=== PATIENT | male | born 1975 | race Caucasian/White ===

== ENCOUNTER 2020-12-15 02:11 | Inpatient (IN) | payer SELFPAY ==
[2020-12-15] MEDS ORDERED: Multivitamins, Adult 10 ML, Thiamine HCl 100 MG, Folic Acid 1 MG in Dextrose 5 %-0.45 %... IV SCH (03:15)
[2020-12-15 03:29] LABS: CK (CPK) 1806 U/L (30-200); Phosphorus 3.7 mg/dL (2.3-4.7)
[2020-12-15 03:30] LABS: ALT (SGPT) 54 U/L (8-55); AST (SGOT) 150 U/L (5-34); Albumin 3.2 g/dL (3.5-5.0); Alkaline Phosphatase 152 U/L (40-110); Anion Gap 14 mmol/L (10-20); BUN (Urea Nitrogen) 12 mg/dL (8.9-20.6); Bilirubin, Total 6.3 mg/dL (0.2-1.2); Calc. Creatinine Clearance 0 mL/min (70-130); Calcium 8.8 mg/dL (7.8-10.44); Carbon Dioxide 26 mmol/L (22-29); Chloride 92 mmol/L (98-107); Globulin 4.5 g/dL (2.4-3.5); Glucose 114 mg/dL (70-105); Lipase 72 U/L (8-78); Magnesium 1.8 mg/dL (1.6-2.6); Potassium 3.9 mmol/L (3.5-5.1); Protein, Total 7.7 g/dL (6.0-8.3); Sodium 128 mmol/L (136-145)
[2020-12-15 03:31] LABS: #Eosinphils 0.1 thou/uL (0.0-0.7); #Lymphocytes 1.1 thou/uL (1.20-3.40); #Monocytes 1.2 thou/uL (0.11-0.59); #Neutrophils 6.7 thou/uL (1.40-6.50); %Basophils 0.4 % (0.0-1.0); %Eosinophils 0.8 % (0.0-10.0); %Lymphocytes 12.3 % (21.0-51.0); %Monocytes 13.6 % (0.0-10.0); Hemoglobin 14.9 g/dL (14.0-18.0); Lymphocytes 12 % (21-51); MDiff Complete? YES; Mean Corpuscular Hemoglobin 33.9 pg (27.0-31.0); Mean Platelet Volume 9.8 fL (7.4-10.4); Monocytes 5 % (0-10); Neutrophil 83 % (42-75); Platelet Count 48 thou/uL (130-400); Platelet Morphology Comment Appears Decreased; RBC Distribution Width 13.1 % (11.5-14.5); Red Blood Cell (RBC) Count 4.38 mill/uL (4.70-6.10); White Blood Cell (WBC) Count 9.1 thou/uL (4.8-10.8)
[2020-12-15] MEDS ORDERED: Lorazepam 2 MG/ML VIAL ONE ×2 (03:39→11:02)
[2020-12-15 04:03] LABS: Amphetamine Not Detected (NotDetected); Barbiturates Screen Not Detected (NotDetected); Benzodiazepine Screen Not Detected (NotDetected); Cocaine Metabolite Screen Not Detected (NotDetected); Medtox Control Line Valid? VALID (VALID); Medtox Reader # READER 4; Methadone Not Detected (NotDetected); Methamphetamine Not Detected (NotDetected); Opiate Screen Not Detected (NotDetected); Oxycodone Screen Not Detected (NotDetected); Phencyclidine (PCP) Not Detected (NotDetected); THC/Cannabinoid Screen Not Detected (NotDetected); Tricyclic Screen Not Detected (NotDetected)
[2020-12-15] MEDS ORDERED: Acetaminophen 325 MG TAB PO PRN (06:51)
[2020-12-15] MEDS ORDERED: Ondansetron PF 4 MG/2 ML Vial IVP PRN (06:51)
[2020-12-15 07:01] LABS: Anion Gap 13 mmol/L (10-20); BUN (Urea Nitrogen) 10 mg/dL (8.9-20.6); CK (CPK) 1316 U/L (30-200); Calc. Creatinine Clearance 0 mL/min (70-130); Calcium 8.4 mg/dL (7.8-10.44); Carbon Dioxide 24 mmol/L (22-29); Chloride 97 mmol/L (98-107); Glucose 116 mg/dL (70-105); Potassium 3.3 mmol/L (3.5-5.1); Sodium 131 mmol/L (136-145)
[2020-12-15] MEDS ORDERED: Potassium Chloride 20 MEQ TAB PO SCH (07:30)
[2020-12-15 07:45] LABS: INR-International Normal Ratio 1.5; PTT 37.5 sec (22.9-36.1); Prothrombin Time 18.1 sec (12.0-14.7)
[2020-12-15] MEDS: Famotidine 20 MG TAB PO SCH ×2 (10:20→21:28)
[2020-12-15] MEDS ORDERED: Potassium Chloride 20 MEQ TAB ONE (10:22)
[2020-12-15] MEDS ORDERED: Famotidine 20 MG TAB ONE (10:22)
[2020-12-15] MEDS ORDERED: chlordiazePOXIDE HCl 25 MG CAP ONE (11:02)
[2020-12-15] MEDS: Lorazepam 2 MG/ML VIAL SLOW IVP PRN ×4 (11:14→23:03)
[2020-12-15] MEDS ORDERED: chlordiazePOXIDE HCl 25 MG CAP PO SCH ×2 (12:00→14:00)
[2020-12-15 12:05] LABS: Bilirubin Negative (Negative); Blood, Urine Negative (Negative); Glucose, Urine (Dipstick) Negative (Negative); Ketone, Urine Negative (Negative); Leukocyte Negative (Negative); Nitrite Negative (Negative); Protein, Urine (Dipstick) Negative (Neg-Trace)
[2020-12-15 12:12] LABS: Clarity Clear (Clear); Specific Gravity, Urine 1.008 (1.005-1.030)
[2020-12-15 12:14] VITALS: BMI 21.0
[2020-12-15 12:19] LABS: Bacteria/HPF None Seen HPF (None Seen); RBC/HPF 0-3 HPF (0-3); Squamous Epithelial None Seen HPF (0-3); WBC/HPF 0-3 HPF (0-3)
[2020-12-15 12:22] LABS: Urine Culture Reflex No No
[2020-12-15] MEDS: Multivitamins, Adult 10 ML, Folic Acid 1 MG, Thiamine HCl 100 MG in Dextrose 5 %-0.45 %... IV SCH (12:45)
[2020-12-15 13:13] LABS: Anion Gap 11 mmol/L (10-20); BUN (Urea Nitrogen) 10 mg/dL (8.9-20.6); Calc. Creatinine Clearance 124 mL/min (70-130); Calcium 8.6 mg/dL (7.8-10.44); Carbon Dioxide 27 mmol/L (22-29); Chloride 98 mmol/L (98-107); Glucose 121 mg/dL (70-105); Potassium 3.9 mmol/L (3.5-5.1); Sodium 132 mmol/L (136-145)
[2020-12-15] MEDS ORDERED: Lorazepam 2 MG/ML VIAL SLOW IVP SCH (15:30)
[2020-12-15] MEDS ORDERED: Lorazepam 2 MG/ML VIAL SLOW IVP PRN (15:32)
[2020-12-15] MEDS ORDERED: Magnesium 2 GM/50 ML 2 GM in Premix Bag 1 BAG IVPB SCH (16:00)
[2020-12-15 17:17] LABS: HBCM Index 0.14 S/CO (0-0.79); HBSAg Index 0.18 S/CO (0-0.99); Hep A IgM AB Non-Reactive (NonReactive); Hep A IgM S/CO 0.46 S/CO (0-0.79); Hep B Surf Ag Non-Reactive S/CO (NonReactive); Hep C IgG Ab Non-Reactive (NonReactive); Hep C Index 0.14 S/CO (0-0.79); Hepatitis B Core IgM Abs Non-Reactive (NonReactive)
[2020-12-15 17:30] LABS: CK (CPK) 1769 U/L (30-200); Magnesium 1.7 mg/dL (1.6-2.6); Phosphorus 2.8 mg/dL (2.3-4.7)
[2020-12-15] MEDS: Sodium Chloride 0.9% 1,000 ML IV SCH (21:29)
[2020-12-15 21:34] LABS: Anion Gap 12 mmol/L (10-20); BUN (Urea Nitrogen) 8 mg/dL (8.9-20.6); Calc. Creatinine Clearance 143 mL/min (70-130); Calcium 7.9 mg/dL (7.8-10.44); Carbon Dioxide 23 mmol/L (22-29); Chloride 103 mmol/L (98-107); Glucose 112 mg/dL (70-105); Potassium 3.6 mmol/L (3.5-5.1); Sodium 134 mmol/L (136-145)
[2020-12-16] MEDS: Lorazepam 2 MG/ML VIAL SLOW IVP PRN ×3 (01:47→07:57)
[2020-12-16 03:20] LABS: Eosinophils 1 % (0-10); Hypochromia SLIGHT = 6-15 cells (100X) (0-5/hpf); Lymphocytes 2 % (21-51); MDiff Complete? YES; Mean Corpuscular HGB CONC 33.5 g/dL (32.0-36.0); Mean Corpuscular Hemoglobin 36.8 pg (27.0-31.0); Mean Platelet Volume 8.8 fL (7.4-10.4); Monocytes 21 % (0-10); Neutrophil 76 % (42-75); Platelet Count 36 thou/uL (130-400); Platelet Morphology Comment Appears Decreased; RBC Distribution Width 13.4 % (11.5-14.5); Red Blood Cell (RBC) Count 3.52 mill/uL (4.70-6.10); White Blood Cell (WBC) Count 6.4 thou/uL (4.8-10.8)
[2020-12-16 03:36] LABS: ALT (SGPT) 47 U/L (8-55); AST (SGOT) 122 U/L (5-34); Albumin 2.7 g/dL (3.5-5.0); Alkaline Phosphatase 106 U/L (40-110); Anion Gap 10 mmol/L (10-20); BUN (Urea Nitrogen) 8 mg/dL (8.9-20.6); Bilirubin, Direct 3.5 mg/dL (0.1-0.3); Bilirubin, Total 5.8 mg/dL (0.2-1.2); Calc. Creatinine Clearance 132 mL/min (70-130); Calcium 7.8 mg/dL (7.8-10.44); Carbon Dioxide 24 mmol/L (22-29); Chloride 104 mmol/L (98-107); Glucose 97 mg/dL (70-105); Magnesium 1.9 mg/dL (1.6-2.6); Potassium 3.2 mmol/L (3.5-5.1); Protein, Total 6.4 g/dL (6.0-8.3); Sodium 135 mmol/L (136-145)
[2020-12-16] MEDS: Sodium Chloride 0.9% 1,000 ML IV SCH ×2 (07:56→17:44)
[2020-12-16] MEDS: Famotidine 20 MG TAB PO SCH ×2 (07:56→21:15)
[2020-12-16] MEDS ORDERED: Potassium Chloride 20 MEQ TAB PO SCH ×2 (08:00→18:00)
[2020-12-16] MEDS: Multivitamins, Adult 10 ML, Folic Acid 1 MG, Thiamine HCl 100 MG in Dextrose 5 %-0.45 %... IV SCH (08:19)
[2020-12-16] MEDS ORDERED: Potassium Chloride 40 MEQ in Sodium Chloride 0.9% 250 ML 250 ML IVPB SCH (19:30)
[2020-12-17 03:31] LABS: #Lymphocytes 0.9 thou/uL (1.20-3.40); #Monocytes 0.9 thou/uL (0.11-0.59); #Neutrophils 4.9 thou/uL (1.40-6.50); %Basophils 0.6 % (0.0-1.0); %Eosinophils 0.7 % (0.0-10.0); %Lymphocytes 12.7 % (21.0-51.0); %Monocytes 13.3 % (0.0-10.0); %Neutrophils 72.6 % (42.0-75.0); Hemoglobin 13.2 g/dL (14.0-18.0); Mean Corpuscular HGB CONC 34.6 g/dL (32.0-36.0); Mean Platelet Volume 8.8 fL (7.4-10.4); Platelet Count 38 thou/uL (130-400); RBC Distribution Width 13.3 % (11.5-14.5); Red Blood Cell (RBC) Count 3.47 mill/uL (4.70-6.10); White Blood Cell (WBC) Count 6.7 thou/uL (4.8-10.8)
[2020-12-17 03:50] LABS: ALT (SGPT) 47 U/L (8-55); AST (SGOT) 100 U/L (5-34); Albumin 2.5 g/dL (3.5-5.0); Alkaline Phosphatase 101 U/L (40-110); Anion Gap 10 mmol/L (10-20); BUN (Urea Nitrogen) 8 mg/dL (8.9-20.6); Bilirubin, Total 6.7 mg/dL (0.2-1.2); CK (CPK) 397 U/L (30-200); Calc. Creatinine Clearance 147 mL/min (70-130); Calcium 7.7 mg/dL (7.8-10.44); Carbon Dioxide 22 mmol/L (22-29); Chloride 104 mmol/L (98-107); Globulin 3.7 g/dL (2.4-3.5); Glucose 110 mg/dL (70-105); Magnesium 1.7 mg/dL (1.6-2.6); Potassium 3.9 mmol/L (3.5-5.1); Protein, Total 6.2 g/dL (6.0-8.3); Sodium 132 mmol/L (136-145)
[2020-12-17] MEDS: Sodium Chloride 0.9% 1,000 ML IV SCH (06:37)
[2020-12-17] MEDS: Famotidine 20 MG TAB PO SCH ×2 (07:35→20:26)
[2020-12-17] MEDS ORDERED: Magnesium 2 GM/50 ML 2 GM in Premix Bag 1 BAG IVPB SCH (08:00)
[2020-12-17] MEDS: Multivitamins, Adult 10 ML, Folic Acid 1 MG, Thiamine HCl 100 MG in Dextrose 5 %-0.45 %... IV SCH (09:01)
[2020-12-18 07:25] LABS: Hemoglobin 14.1 g/dL (14.0-18.0); Mean Corpuscular HGB CONC 32.8 g/dL (32.0-36.0); Mean Corpuscular Hemoglobin 36.8 pg (27.0-31.0); Mean Platelet Volume 9.2 fL (7.4-10.4); Platelet Count 51 thou/uL (130-400); RBC Distribution Width 13.2 % (11.5-14.5); Red Blood Cell (RBC) Count 3.84 mill/uL (4.70-6.10); White Blood Cell (WBC) Count 6.6 thou/uL (4.8-10.8)
[2020-12-18 07:32] LABS: ALT (SGPT) 52 U/L (8-55); AST (SGOT) 94 U/L (5-34); Albumin 2.9 g/dL (3.5-5.0); Alkaline Phosphatase 135 U/L (40-110); Anion Gap 11 mmol/L (10-20); BUN (Urea Nitrogen) 8 mg/dL (8.9-20.6); Bilirubin, Total 5.9 mg/dL (0.2-1.2); Calc. Creatinine Clearance 125 mL/min (70-130); Calcium 8.5 mg/dL (7.8-10.44); Carbon Dioxide 24 mmol/L (22-29); Chloride 104 mmol/L (98-107); Globulin 4.3 g/dL (2.4-3.5); Glucose 106 mg/dL (70-105); Potassium 3.9 mmol/L (3.5-5.1); Protein, Total 7.2 g/dL (6.0-8.3); Sodium 135 mmol/L (136-145)
[2020-12-18 08:52] LABS: Band 2 % (5-11); Lymphocytes 21 % (21-51); MDiff Complete? YES; Monocytes 13 % (0-10); Neutrophil 62 % (42-75); Platelet Morphology Comment Appears Decreased; RBC Morphology Normal; Reactive Lymphocytes 2 % (0-10)
[2020-12-18] MEDS ORDERED: Propranolol 40 MG TAB PO SCH (09:00)
[2020-12-18] MEDS: Famotidine 20 MG TAB PO SCH (09:02)
[2020-12-18] MEDS: Multivitamins, Adult 10 ML, Folic Acid 1 MG, Thiamine HCl 100 MG in Dextrose 5 %-0.45 %... IV SCH (09:03)
[2020-12-18 10:24] VITALS: BP 142/81; TEMP 97.9
[2020-12-18 11:37] LABS: SARS-CoV-2 PCR by NAA Not Detected (NotDetected)
== END 2020-12-18 10:26 | disposition home or self-care (01) | DRG 896 ==
LOC: ERS 02:11 → ERHOLD 03:54 → 2NO 12:03 → IMCU/EMU 20:37 → T4-B 12-17 19:47
PROVIDERS: ADMIT Internal Medicine; ATTEND Internal Medicine
PROC: HZ2ZZZZ Detoxification Services for Substance Abuse Treatment (ICD-10-PCS; principal; 2020-12-15)
DX: F10.231 Alcohol dependence with withdrawal delirium (principal); G93.41 Metabolic encephalopathy; E87.1 Hypo-osmolality and hyponatremia; M62.82 Rhabdomyolysis; G93.49 Other encephalopathy; D68.9 Coagulation defect, unspecified; Z20.822 Contact with and (suspected) exposure to COVID-19; F10.280 Alcohol dependence with alcohol-induced anxiety disorder; F10.251 Alcohol dependence with alcohol-induced psychotic disorder with hallucinations; F17.210 Nicotine dependence, cigarettes, uncomplicated; R74.8 Abnormal levels of other serum enzymes; E80.6 Other disorders of bilirubin metabolism; D69.6 Thrombocytopenia, unspecified; E87.6 Hypokalemia; E86.0 Dehydration; K70.10 Alcoholic hepatitis without ascites; Z79.899 Other long term (current) drug therapy
CPT/HCPCS: 36415; 70450; 71045; 76705; 80048; 80053; 80074; 80076; 80306; 81001; 82140; 82550; 83690; 83735; 83930; 83935; 84100; 84300; 84443; 85025; 85610; 85730; 93005; 96365; 96366; 96375; J2060; J3411; J3475; J3480; J7042; J7050; U0003; U0005

== ENCOUNTER 2021-02-17 19:06 | Inpatient (IN) | payer BC, SELFPAY ==
[2021-02-17 19:41] LABS: #Basophils 0.1 thou/uL (0.0-0.2); #Monocytes 0.6 thou/uL (0.11-0.59); #Neutrophils 10.6 thou/uL (1.40-6.50); %Basophils 0.5 % (0.0-1.0); %Eosinophils 0.1 % (0.0-10.0); %Lymphocytes 7.9 % (21.0-51.0); %Monocytes 4.9 % (0.0-10.0); %Neutrophils 86.6 % (42.0-75.0); Hemoglobin 9.9 g/dL (14.0-18.0); Mean Corpuscular HGB CONC 33.7 g/dL (32.0-36.0); Mean Corpuscular Hemoglobin 36.7 pg (27.0-31.0); RBC Distribution Width 12.9 % (11.5-14.5); White Blood Cell (WBC) Count 12.3 thou/uL (4.8-10.8)
[2021-02-17 19:51] LABS: INR-International Normal Ratio 1.7; Prothrombin Time 20.2 sec (12.0-14.7)
[2021-02-17 19:52] LABS: PTT 38.8 sec (22.9-36.1)
[2021-02-17 19:58] LABS: MDiff Complete? YES; Macrocytosis SLIGHT = 6-15 cells (100X) (0-5/hpf); Mean Platelet Volume 8.8 fL (7.4-10.4); Platelet Count 79 thou/uL (130-400); Platelet Morphology Comment Appears Decreased
[2021-02-17 20:01] LABS: ALT (SGPT) 33 U/L (8-55); AST (SGOT) 82 U/L (5-34); Albumin 2.4 g/dL (3.5-5.0); Alkaline Phosphatase 101 U/L (40-110); Anion Gap 20 mmol/L (10-20); BUN (Urea Nitrogen) 18 mg/dL (8.9-20.6); Bilirubin, Total 4.7 mg/dL (0.2-1.2); Calc. Creatinine Clearance 0 mL/min (70-130); Calcium 8.1 mg/dL (7.8-10.44); Carbon Dioxide 17 mmol/L (22-29); Chloride 105 mmol/L (98-107); Globulin 3.3 g/dL (2.4-3.5); Glucose 159 mg/dL (70-105); Potassium 4.2 mmol/L (3.5-5.1); Protein, Total 5.7 g/dL (6.0-8.3); Sodium 138 mmol/L (136-145)
[2021-02-17] MEDS ORDERED: Metoclopramide HCl 10 MG/2 ML VIAL ONE (21:03)
[2021-02-17] MEDS ORDERED: Fentanyl 100 MCG/2 ML VIAL ONE (21:31)
[2021-02-17] MEDS ORDERED: Midazolam HCl 2 mg/2 ml Vial ONE (21:31)
[2021-02-17 22:06] LABS: SARS-CoV-2 NAA Rapid Test Not Detected (NotDetected)
[2021-02-17] MEDS ORDERED: Esmolol 100 MG/10 ML VIAL ONE (22:58)
[2021-02-17] MEDS ORDERED: Lidocaine 1% PF 5 ML VIAL ONE (22:58)
[2021-02-17] MEDS ORDERED: PHENYLEPHRINE-NS 100 MCG/ML 10 ML SYRINGE ONE (22:58)
[2021-02-17] MEDS ORDERED: PROPOFOL 200 MG/20 ML VIAL ONE (22:58)
[2021-02-17] MEDS ORDERED: Fentanyl CADD 100 ML ONE (23:43)
[2021-02-17] MEDS ORDERED: Propofol 1,000 MG/100 ML VIAL IV ONE (23:43)
[2021-02-17] MEDS: Fentanyl CADD 100 ML IV SCH (23:45)
[2021-02-18] MEDS ORDERED: Morphine 2 MG/ML VIAL SLOW IVP PRN ×2 (00:30→01:00)
[2021-02-18] MEDS ORDERED: Fentanyl BOLUS 250 ML IVPB PRN ×2 (00:30→01:00)
[2021-02-18] MEDS ORDERED: Propofol BOLUS 1,000 MG/100 ML VIAL IV PRN ×2 (00:30→01:00)
[2021-02-18] MEDS ORDERED: DISCONTINUE PREVIOUS NARCOTIC PAIN MEDICATIONS AND BENZODIAZEPINES FS SCH ×2 (00:30→01:00)
[2021-02-18 00:37] LABS: Hemoglobin 7.9 g/dL (14.0-18.0); Platelet Count 87 thou/uL (130-400)
[2021-02-18] MEDS: Sodium Bicarb 50 MEQ/50 ML Abboject 8.4% SYRINGE ONE ×2 (00:39→00:40)
[2021-02-18 00:40] LABS: Actual Bicarbonate (HCO3a) 15.7 mEq/L (22-28); Base Excess (BEa) -10.5 mEq/L (-2.0 to +3.0); CO2 Tension 35.7 mmHg (35.0-45.0); Calcium, Ionized (arterial) 1.02 mmol/L (1.12-1.30); Hemoglobin (Hb) 8.1 g/dL (14.0-18.0); Potassium - ABG Lab 6.06 mmol/L (3.70-5.30); Puncture Site LRA; pH, Arterial 7.26 (7.35-7.45)
[2021-02-18 00:41] LABS: ALV-art Gradient 157.575 mmHg (0-20)
[2021-02-18] MEDS ORDERED: Ondansetron PF 4 MG/2 ML Vial IVP PRN (00:51)
[2021-02-18] MEDS ORDERED: Acetaminophen 650 MG Suppository PR PRN (00:51)
[2021-02-18] MEDS ORDERED: Ondansetron ODT 4 MG TAB PO PRN (00:51)
[2021-02-18] MEDS ORDERED: Lorazepam 2 MG/ML VIAL SLOW IVP PRN (01:00)
[2021-02-18] MEDS ORDERED: Fentanyl CADD 100 ML IV SCH (01:00)
[2021-02-18] MEDS ORDERED: Ventilator Sedation Protocol 1 EACH FS SCH (01:00)
[2021-02-18] MEDS ORDERED: Propofol 1,000 MG/100 ML VIAL IV PRN (01:00)
[2021-02-18] MEDS: cefTRIAXone\\ROCEPHIN 2 GM in Sodium Chloride 0.9% 100 ML IVPB SCH ×2 (01:18→22:10)
[2021-02-18] MEDS ORDERED: Diazepam 5 MG TAB PO PRN (03:51)
[2021-02-18 03:59] LABS: #Basophils 0.1 thou/uL (0.0-0.2); #Lymphocytes 1.2 thou/uL (1.20-3.40); #Monocytes 1.9 thou/uL (0.11-0.59); #Neutrophils 14.2 thou/uL (1.40-6.50); %Basophils 0.4 % (0.0-1.0); %Eosinophils 0.1 % (0.0-10.0); %Monocytes 10.9 % (0.0-10.0); %Neutrophils 81.7 % (42.0-75.0); Hemoglobin 8.9 g/dL (14.0-18.0); Mean Corpuscular HGB CONC 33.9 g/dL (32.0-36.0); Mean Corpuscular Hemoglobin 36.1 pg (27.0-31.0); Platelet Count 77 thou/uL (130-400); RBC Distribution Width 13.5 % (11.5-14.5); Red Blood Cell (RBC) Count 2.48 mill/uL (4.70-6.10); White Blood Cell (WBC) Count 17.3 thou/uL (4.8-10.8)
[2021-02-18] MEDS: Lorazepam 2 MG/ML VIAL SLOW IVP PRN ×7 (04:00→22:16)
[2021-02-18] MEDS ORDERED: Diazepam 5 MG TAB PO SCH (04:00)
[2021-02-18 04:12] LABS: Lactic Acid 9.4 mmol/L (0.5-2.2)
[2021-02-18 04:13] LABS: Anion Gap 19 mmol/L (10-20); BUN (Urea Nitrogen) 23 mg/dL (8.9-20.6); Calc. Creatinine Clearance 112 mL/min (70-130); Calcium 7.1 mg/dL (7.8-10.44); Carbon Dioxide 18 mmol/L (22-29); Chloride 110 mmol/L (98-107); Glucose 138 mg/dL (70-105); Potassium 6.6 mmol/L (3.5-5.1); Sodium 140 mmol/L (136-145)
[2021-02-18] MEDS ORDERED: Thiamine HCl 200 MG/2 ML VIAL IM SCH (04:15)
[2021-02-18] MEDS ORDERED: Dextrose 50% Abboject 50 ML SYRINGE ONE (04:18)
[2021-02-18] MEDS ORDERED: Insulin Regular 300 UNITS/3 ML VIAL ONE (04:18)
[2021-02-18] MEDS ORDERED: Dextrose 50% Abboject 50 ML SYRINGE SLOW IVP PRN (04:21)
[2021-02-18] MEDS ORDERED: Sodium Chloride 0.9% 1,000 ML IV SCH ×3 (04:30→08:15)
[2021-02-18] MEDS ORDERED: Insulin Regular 300 UNITS/3 ML VIAL IVP SCH ×3 (04:30→14:00)
[2021-02-18] MEDS ORDERED: Calcium Gluc 4.6 MEQ/10 ML (100 MG/ML) SLOW IVP SCH (04:30)
[2021-02-18] MEDS ORDERED: Dextrose 50% Abboject 50 ML SYRINGE SLOW IVP SCH ×2 (04:45→14:00)
[2021-02-18 04:49] LABS: Phosphorus 4.3 mg/dL (2.3-4.7)
[2021-02-18 05:46] LABS: Amphetamine Not Detected (NotDetected); Barbiturates Screen Not Detected (NotDetected); Benzodiazepine Screen Not Detected (NotDetected); Cocaine Metabolite Screen Not Detected (NotDetected); Methadone Not Detected (NotDetected); Methamphetamine Not Detected (NotDetected); Opiate Screen Not Detected (NotDetected); Oxycodone Screen Not Detected (NotDetected); Phencyclidine (PCP) Not Detected (NotDetected); THC/Cannabinoid Screen Not Detected (NotDetected); Tricyclic Screen Not Detected (NotDetected)
[2021-02-18] MEDS ORDERED: Sodium Bicarbonate 150 MEQ in Dextrose 5% in Water 1,000 ML IV SCH (06:30)
[2021-02-18 06:38] LABS: ALT (SGPT) 133 U/L (8-55); AST (SGOT) 352 U/L (5-34); Albumin 1.6 g/dL (3.5-5.0); Alkaline Phosphatase 71 U/L (40-110); Anion Gap 15 mmol/L (10-20); BUN (Urea Nitrogen) 25 mg/dL (8.9-20.6); Bilirubin, Direct 2.8 mg/dL (0.1-0.3); Bilirubin, Total 5.2 mg/dL (0.2-1.2); Calc. Creatinine Clearance 92 mL/min (70-130); Calcium 6.8 mg/dL (7.8-10.44); Carbon Dioxide 19 mmol/L (22-29); Chloride 113 mmol/L (98-107); Globulin 2.4 g/dL (2.4-3.5); Glucose 139 mg/dL (70-105); Magnesium 1.4 mg/dL (1.6-2.6); Potassium 4.8 mmol/L (3.5-5.1); Sodium 142 mmol/L (136-145)
[2021-02-18] MEDS: Pantoprazole 80 MG, Admixture Fee 1 EACH in Sodium Chloride 0.9% 100 ML IVPB SCH ×2 (06:38→15:57)
[2021-02-18] MEDS: Propofol 1,000 MG/100 ML VIAL IV PRN ×2 (06:39→11:11)
[2021-02-18 06:51] LABS: Syphilis Antibody Nonreactive (Nonreactive); Syphilis Antibody Index 0.04 S/CO (<1.00 Non-Reactive)
[2021-02-18] MEDS ORDERED: Magnesium 2 GM/50 ML 2 GM in Premix Bag 1 BAG IVPB SCH (08:45)
[2021-02-18 08:47] LABS: Hemoglobin 8.4 g/dL (14.0-18.0)
[2021-02-18 08:56] LABS: Lactic Acid 5.2 mmol/L (0.5-2.2)
[2021-02-18] MEDS ORDERED: Multivitamin W/ Minerals 1 TAB PO SCH (09:00)
[2021-02-18] MEDS ORDERED: Folic Acid 1 MG TAB PO SCH (09:00)
[2021-02-18] MEDS ORDERED: Albumin 25% 25 GM/100 ML BOT IVPB ONE (09:41)
[2021-02-18] MEDS: Multivitamins, Adult 10 ML, Folic Acid 1 MG, Thiamine HCl 100 MG in Dextrose 5 %-0.45 %... IV SCH (10:05)
[2021-02-18] MEDS: Phytonadione 10 MG/ML AMP SC SCH (10:44)
[2021-02-18] MEDS: Clindamycin/D5W 600 MG in Premix Bag 1 BAG IVPB SCH ×3 (12:10→23:31)
[2021-02-18] MEDS ORDERED: Fentanyl CADD 100 ML ONE (12:29)
[2021-02-18 12:42] LABS: Hemoglobin 6.8 g/dL (14.0-18.0)
[2021-02-18 13:11] LABS: Lactic Acid 4.2 mmol/L (0.5-2.2)
[2021-02-18 13:28] LABS: Anion Gap 16 mmol/L (10-20); BUN (Urea Nitrogen) 30 mg/dL (8.9-20.6); BUN/Creatinine Ratio 17.54; Calc. Creatinine Clearance 64 mL/min (70-130); Calcium 7.1 mg/dL (7.8-10.44); Carbon Dioxide 20 mmol/L (22-29); Chloride 109 mmol/L (98-107); Glucose 189 mg/dL (70-105); Phosphorus 3.9 mg/dL (2.3-4.7); Sodium 139 mmol/L (136-145)
[2021-02-18] MEDS ORDERED: Furosemide 40 MG/4 ML VIAL SLOW IVP SCH (14:00)
[2021-02-18] MEDS ORDERED: Lactated Ringer's 1,000 ML IV SCH (14:45)
[2021-02-18] MEDS: Octreotide Acetate 1,250 MCG in Sodium Chloride 0.9% 250 ML 250 ML IVPB SCH (15:57)
[2021-02-18 17:05] LABS: Hemoglobin 8.4 g/dL (14.0-18.0)
[2021-02-18 17:18] LABS: Lactic Acid 3.8 mmol/L (0.5-2.2)
[2021-02-18 20:16] LABS: Hemoglobin 7.9 g/dL (14.0-18.0)
[2021-02-18 20:28] LABS: Potassium 4.4 mmol/L (3.5-5.1)
[2021-02-18] MEDS ORDERED: Multivitamins, Adult 10 ML, Folic Acid 1 MG, Thiamine HCl 100 MG in Dextrose 5 %-0.45 %... IV SCH (23:30)
[2021-02-18] MEDS ORDERED: Sodium Chloride 0.9% 500 ML IV SCH (23:30)
[2021-02-19 00:07] LABS: Hemoglobin 7.4 g/dL (14.0-18.0); Platelet Count 34 thou/uL (130-400)
[2021-02-19] MEDS: Pantoprazole 80 MG, Admixture Fee 1 EACH in Sodium Chloride 0.9% 100 ML IVPB SCH ×3 (00:10→22:21)
[2021-02-19] MEDS ORDERED: Norepinephrine 8 MG/0.9% NS 250 ML IVPB PRN (00:36)
[2021-02-19 03:37] LABS: #Neutrophils 7.4 thou/uL (1.40-6.50); %Basophils 0.2 % (0.0-1.0); %Eosinophils 0.1 % (0.0-10.0); %Lymphocytes 10.6 % (21.0-51.0); %Monocytes 10.9 % (0.0-10.0); %Neutrophils 78.3 % (42.0-75.0); Hemoglobin 8.1 g/dL (14.0-18.0); Mean Corpuscular HGB CONC 34.9 g/dL (32.0-36.0); Mean Corpuscular Hemoglobin 34.4 pg (27.0-31.0); Mean Corpuscular Volume 98.7 fL (78.0-98.0); Mean Platelet Volume 9.8 fL (7.4-10.4); Platelet Count 33 thou/uL (130-400); RBC Distribution Width 18.5 % (11.5-14.5); Red Blood Cell (RBC) Count 2.34 mill/uL (4.70-6.10); White Blood Cell (WBC) Count 9.4 thou/uL (4.8-10.8)
[2021-02-19 03:48] LABS: Lactic Acid 2.5 mmol/L (0.5-2.2)
[2021-02-19 03:57] LABS: ALT (SGPT) 669 U/L (8-55); AST (SGOT) 2326 U/L (5-34); Albumin 2.7 g/dL (3.5-5.0); Alkaline Phosphatase 69 U/L (40-110); Anion Gap 11 mmol/L (10-20); BUN (Urea Nitrogen) 44 mg/dL (8.9-20.6); Bilirubin, Total 9.4 mg/dL (0.2-1.2); Calc. Creatinine Clearance 55 mL/min (70-130); Calcium 7.4 mg/dL (7.8-10.44); Carbon Dioxide 24 mmol/L (22-29); Chloride 108 mmol/L (98-107); Globulin 1.9 g/dL (2.4-3.5); Glucose 104 mg/dL (70-105); Magnesium 1.9 mg/dL (1.6-2.6); Phosphorus 3.7 mg/dL (2.3-4.7); Potassium 4.5 mmol/L (3.5-5.1); Protein, Total 4.6 g/dL (6.0-8.3); Sodium 138 mmol/L (136-145)
[2021-02-19] MEDS ORDERED: Diazepam 5 MG TAB PO PRN (04:00)
[2021-02-19] MEDS: Lorazepam 2 MG/ML VIAL SLOW IVP PRN ×3 (06:17→21:35)
[2021-02-19] MEDS: Clindamycin/D5W 600 MG in Premix Bag 1 BAG IVPB SCH ×4 (06:25→23:15)
[2021-02-19 06:45] LABS: Hemoglobin 8.6 g/dL (14.0-18.0)
[2021-02-19 07:35] LABS: Bacteria/HPF None Seen HPF (None Seen); Bilirubin 1+ (Negative); Blood, Urine 1+ (Negative); Clarity Clear (Clear); Glucose, Urine (Dipstick) Normal (Negative); Ketone, Urine Negative (Negative); Leukocyte Negative Leu/uL (Negative); Nitrite Negative (Negative); Protein, Urine (Dipstick) 20 mg/dL (Neg-Trace); Specific Gravity, Urine 1.024 (1.002-1.036); Squamous Epithelial 0-3 HPF (0-3); Urobilinogen Normal mg/dL (Less than 2); pH, Urine 5.5 (5.0-9.0)
[2021-02-19] MEDS ORDERED: Fentanyl CADD 100 ML ONE (07:35)
[2021-02-19] MEDS: Fentanyl CADD 100 ML IV SCH (07:44)
[2021-02-19 07:57] LABS: Creatinine, Urine 141.28 mg/dL (63-166)
[2021-02-19] MEDS ORDERED: Calcium Chloride 13.6 MEQ in Sodium Chloride 0.9% 100 ML IVPB SCH (08:15)
[2021-02-19 08:35] LABS: Urine Culture Reflex Yes Yes
[2021-02-19] MEDS ORDERED: Magnesium Oxide 400 MG TAB PO SCH (09:00)
[2021-02-19] MEDS ORDERED: Lidocaine 1% (PF) 30 ML VIAL FS SCH (09:00)
[2021-02-19] MEDS ORDERED: Thiamine 100 MG TAB PO SCH (09:00)
[2021-02-19] MEDS: Dextrose 5%-Lactated Ringers 1,000 ML IV SCH ×2 (09:13→16:51)
[2021-02-19] MEDS: Phytonadione 10 MG/ML AMP SC SCH (09:14)
[2021-02-19 09:20] LABS: Hemoglobin 8.6 g/dL (14.0-18.0)
[2021-02-19] MEDS: Multivitamins, Adult 10 ML, Folic Acid 1 MG, Thiamine HCl 100 MG in Dextrose 5 %-0.45 %... IV SCH (10:00)
[2021-02-19] MEDS: Propofol 1,000 MG/100 ML VIAL IV PRN (11:10)
[2021-02-19 11:51] LABS: Hemoglobin 8.3 g/dL (14.0-18.0)
[2021-02-19 12:45] LABS: Body Fluid Source Bronchial Washings; Clarity Cloudy/Turbid (Clear)
[2021-02-19 12:46] LABS: BF Color Yellow; BF WBC/Nonhematics Ct.-Manual 57800 /cu.mm
[2021-02-19 12:47] LABS: BF RBC Count - Manual 13800 /cu.mm
[2021-02-19 12:50] LABS: BF Segmented Neutrophils 89 %; Cell Count Non Hematic 11 %
[2021-02-19] MEDS: Midodrine HCl 5 MG TAB PER TUBE SCH ×2 (16:42→21:01)
[2021-02-19] MEDS: cefTRIAXone\\ROCEPHIN 2 GM in Sodium Chloride 0.9% 100 ML IVPB SCH (21:02)
[2021-02-19] MEDS: Octreotide Acetate 1,250 MCG in Sodium Chloride 0.9% 250 ML 250 ML IVPB SCH (22:21)
[2021-02-20 04:58] LABS: INR-International Normal Ratio 2.9; Prothrombin Time 30.8 sec (12.0-14.7)
[2021-02-20] MEDS: Clindamycin/D5W 600 MG in Premix Bag 1 BAG IVPB SCH ×3 (05:03→17:07)
[2021-02-20] MEDS: Dextrose 5%-Lactated Ringers 1,000 ML IV SCH ×2 (05:03→14:32)
[2021-02-20 07:10] LABS: ALT (SGPT) 715 U/L (8-55); AST (SGOT) 1722 U/L (5-34); Albumin 2.8 g/dL (3.5-5.0); Alkaline Phosphatase 88 U/L (40-110); Anion Gap 7 mmol/L (10-20); BUN (Urea Nitrogen) 43 mg/dL (8.9-20.6); Bilirubin, Total 11.4 mg/dL (0.2-1.2); Calc. Creatinine Clearance 80 mL/min (70-130); Calcium 8.1 mg/dL (7.8-10.44); Carbon Dioxide 27 mmol/L (22-29); Chloride 110 mmol/L (98-107); Globulin 2.5 g/dL (2.4-3.5); Glucose 142 mg/dL (70-105); Potassium 4.3 mmol/L (3.5-5.1); Protein, Total 5.3 g/dL (6.0-8.3); Sodium 140 mmol/L (136-145)
[2021-02-20 09:42] LABS: Lactic Acid 1.4 mmol/L (0.5-2.2)
[2021-02-20] MEDS: Phytonadione 10 MG/ML AMP SC SCH (09:54)
[2021-02-20] MEDS: Midodrine HCl 5 MG TAB PER TUBE SCH ×3 (09:54→20:08)
[2021-02-20] MEDS: Multivitamins, Adult 10 ML, Folic Acid 1 MG, Thiamine HCl 100 MG in Dextrose 5 %-0.45 %... IV SCH (10:24)
[2021-02-20] MEDS: Pantoprazole 80 MG, Admixture Fee 1 EACH in Sodium Chloride 0.9% 100 ML IVPB SCH ×2 (12:26→23:25)
[2021-02-20] MEDS ORDERED: Diazepam 5 MG TAB PO PRN (21:04)
[2021-02-20] MEDS: cefTRIAXone\\ROCEPHIN 2 GM in Sodium Chloride 0.9% 100 ML IVPB SCH (21:06)
[2021-02-20] MEDS ORDERED: Diazepam 5 MG TAB PO SCH (21:15)
[2021-02-20] MEDS ORDERED: Thiamine HCl 200 MG/2 ML VIAL IM SCH (21:30)
[2021-02-21] MEDS: Clindamycin/D5W 600 MG in Premix Bag 1 BAG IVPB SCH ×4 (00:18→17:18)
[2021-02-21] MEDS: Dextrose 5%-Lactated Ringers 1,000 ML IV SCH ×2 (00:26→17:19)
[2021-02-21 03:53] LABS: ALT (SGPT) 694 U/L (8-55); AST (SGOT) 1437 U/L (5-34); Albumin 2.5 g/dL (3.5-5.0); Alkaline Phosphatase 89 U/L (40-110); Anion Gap 6 mmol/L (10-20); BUN (Urea Nitrogen) 35 mg/dL (8.9-20.6); Bilirubin, Total 12.1 mg/dL (0.2-1.2); Calc. Creatinine Clearance 120 mL/min (70-130); Calcium 7.8 mg/dL (7.8-10.44); Carbon Dioxide 31 mmol/L (22-29); Chloride 109 mmol/L (98-107); Globulin 2.5 g/dL (2.4-3.5); Glucose 158 mg/dL (70-105); Potassium 4.1 mmol/L (3.5-5.1); Sodium 142 mmol/L (136-145)
[2021-02-21] MEDS ORDERED: Albumin 25% 25 GM/100 ML BOT IVPB SCH (06:15)
[2021-02-21] MEDS: Multivitamin W/ Minerals 1 TAB PO SCH (12:35)
[2021-02-21] MEDS: Midodrine HCl 5 MG TAB PER TUBE SCH ×3 (12:35→22:03)
[2021-02-21] MEDS: Magnesium Oxide 400 MG TAB PO SCH (12:35)
[2021-02-21] MEDS: Thiamine 100 MG TAB PO SCH (12:35)
[2021-02-21] MEDS: Folic Acid 1 MG TAB PO SCH (12:35)
[2021-02-21] MEDS: Octreotide Acetate 1,250 MCG in Sodium Chloride 0.9% 250 ML 250 ML IVPB SCH (17:20)
[2021-02-21] MEDS: Pantoprazole 40 MG VIAL IVP SCH (22:03)
[2021-02-21] MEDS: cefTRIAXone\\ROCEPHIN 2 GM in Sodium Chloride 0.9% 100 ML IVPB SCH (22:03)
[2021-02-22] MEDS: Clindamycin/D5W 600 MG in Premix Bag 1 BAG IVPB SCH ×5 (00:39→23:42)
[2021-02-22] MEDS ORDERED: Clindamycin/D5W 600 mg/50 ml Premix Bag ONE (00:41)
[2021-02-22] MEDS: Diazepam 5 MG TAB PO PRN ×2 (00:58→23:42)
[2021-02-22 04:20] LABS: ALT (SGPT) 709 U/L (8-55); AST (SGOT) 1219 U/L (5-34); Albumin 2.8 g/dL (3.5-5.0); Alkaline Phosphatase 96 U/L (40-110); Anion Gap 11 mmol/L (10-20); BUN (Urea Nitrogen) 35 mg/dL (8.9-20.6); Bilirubin, Total 13.9 mg/dL (0.2-1.2); Calc. Creatinine Clearance 125 mL/min (70-130); Calcium 8.2 mg/dL (7.8-10.44); Carbon Dioxide 26 mmol/L (22-29); Chloride 110 mmol/L (98-107); Globulin 2.7 g/dL (2.4-3.5); Glucose 139 mg/dL (70-105); Potassium 4.1 mmol/L (3.5-5.1); Protein, Total 5.5 g/dL (6.0-8.3); Sodium 143 mmol/L (136-145)
[2021-02-22 04:43] LABS: Band 10 % (5-11); Eosinophils 1 % (0-10); Hemoglobin 10.8 g/dL (14.0-18.0); Lymphocytes 7 % (21-51); MDiff Complete? YES; Macrocytosis MODERATE=16-30 cells (100X) (0-5/hpf); Mean Corpuscular Hemoglobin 34.2 pg (27.0-31.0); Mean Platelet Volume 9.9 fL (7.4-10.4); Monocytes 14 % (0-10); Neutrophil 68 % (42-75); Platelet Count 47 thou/uL (130-400); Platelet Morphology Comment Appears Decreased; RBC Distribution Width 19.6 % (11.5-14.5); Red Blood Cell (RBC) Count 3.17 mill/uL (4.70-6.10); White Blood Cell (WBC) Count 7.8 thou/uL (4.8-10.8)
[2021-02-22] MEDS: Dextrose 5%-Lactated Ringers 1,000 ML IV SCH (06:51)
[2021-02-22] MEDS: Folic Acid 1 MG TAB PO SCH (08:00)
[2021-02-22] MEDS: Magnesium Oxide 400 MG TAB PO SCH (08:00)
[2021-02-22] MEDS: Midodrine HCl 5 MG TAB PER TUBE SCH ×3 (08:00→21:43)
[2021-02-22] MEDS: Thiamine 100 MG TAB PO SCH (08:01)
[2021-02-22] MEDS: Multivitamin W/ Minerals 1 TAB PO SCH (08:01)
[2021-02-22 09:43] LABS: Magnesium 2.2 mg/dL (1.6-2.6)
[2021-02-22] MEDS: Pantoprazole 40 MG VIAL IVP SCH ×2 (11:36→21:42)
[2021-02-22] MEDS: cefTRIAXone\\ROCEPHIN 2 GM in Sodium Chloride 0.9% 100 ML IVPB SCH (21:42)
[2021-02-23] MEDS: Dextrose 5%-Lactated Ringers 1,000 ML IV SCH ×2 (03:31→21:59)
[2021-02-23 04:22] LABS: INR-International Normal Ratio 2.5; Prothrombin Time 27.4 sec (12.0-14.7)
[2021-02-23 04:32] LABS: ALT (SGPT) 568 U/L (8-55); AST (SGOT) 778 U/L (5-34); Albumin 2.6 g/dL (3.5-5.0); Alkaline Phosphatase 92 U/L (40-110); Anion Gap 10 mmol/L (10-20); BUN (Urea Nitrogen) 35 mg/dL (8.9-20.6); Bilirubin, Total 14.7 mg/dL (0.2-1.2); Calc. Creatinine Clearance 114 mL/min (70-130); Calcium 7.8 mg/dL (7.8-10.44); Carbon Dioxide 29 mmol/L (22-29); Chloride 106 mmol/L (98-107); Globulin 2.4 g/dL (2.4-3.5); Glucose 137 mg/dL (70-105); Sodium 141 mmol/L (136-145)
[2021-02-23 04:38] LABS: Band 2 % (5-11); Eosinophils 1 % (0-10); Hemoglobin 10.2 g/dL (14.0-18.0); Hypochromia SLIGHT = 6-15 cells (100X) (0-5/hpf); Lymphocytes 8 % (21-51); MDiff Complete? YES; Macrocytosis SLIGHT = 6-15 cells (100X) (0-5/hpf); Mean Corpuscular HGB CONC 33.1 g/dL (32.0-36.0); Mean Corpuscular Hemoglobin 34.4 pg (27.0-31.0); Mean Platelet Volume 9.6 fL (7.4-10.4); Monocytes 22 % (0-10); Neutrophil 67 % (42-75); Platelet Count 52 thou/uL (130-400); Platelet Morphology Comment Appears Decreased; RBC Distribution Width 19.5 % (11.5-14.5); Red Blood Cell (RBC) Count 2.96 mill/uL (4.70-6.10); White Blood Cell (WBC) Count 7.4 thou/uL (4.8-10.8)
[2021-02-23] MEDS: Clindamycin/D5W 600 MG in Premix Bag 1 BAG IVPB SCH (05:30)
[2021-02-23] MEDS: Octreotide Acetate 1,250 MCG in Sodium Chloride 0.9% 250 ML 250 ML IVPB SCH (09:34)
[2021-02-23] MEDS: Rifaximin 550 MG TAB PO SCH ×2 (09:38→21:55)
[2021-02-23] MEDS: Multivitamin W/ Minerals 1 TAB PO SCH (09:38)
[2021-02-23] MEDS: Magnesium Oxide 400 MG TAB PO SCH (09:38)
[2021-02-23] MEDS: Folic Acid 1 MG TAB PO SCH (09:39)
[2021-02-23] MEDS: chlordiazePOXIDE HCl 25 MG CAP PO SCH ×3 (09:39→21:55)
[2021-02-23] MEDS: Midodrine HCl 5 MG TAB PER TUBE SCH ×3 (09:40→21:55)
[2021-02-23] MEDS: Pantoprazole 40 MG VIAL IVP SCH ×2 (09:41→21:55)
[2021-02-23] MEDS: Thiamine 100 MG TAB PO SCH (09:41)
[2021-02-23] MEDS: methylPREDNISolone Sod Succ 40 MG VIAL IVP SCH (09:41)
[2021-02-23] MEDS: Phytonadione 10 MG/ML AMP SC SCH (09:43)
[2021-02-23] MEDS: Lorazepam 2 MG/ML VIAL SLOW IVP PRN ×2 (12:14→22:05)
[2021-02-23] MEDS: cefTRIAXone\\ROCEPHIN 2 GM in Sodium Chloride 0.9% 100 ML IVPB SCH (21:59)
[2021-02-24 04:28] LABS: ALT (SGPT) 489 U/L (8-55); AST (SGOT) 534 U/L (5-34); Albumin 2.5 g/dL (3.5-5.0); Alkaline Phosphatase 104 U/L (40-110); Anion Gap 13 mmol/L (10-20); BUN (Urea Nitrogen) 34 mg/dL (8.9-20.6); Bilirubin, Total 17.6 mg/dL (0.2-1.2); Calc. Creatinine Clearance 120 mL/min (70-130); Carbon Dioxide 24 mmol/L (22-29); Chloride 104 mmol/L (98-107); Globulin 2.9 g/dL (2.4-3.5); Glucose 139 mg/dL (70-105); Potassium 4.4 mmol/L (3.5-5.1); Protein, Total 5.4 g/dL (6.0-8.3); Sodium 137 mmol/L (136-145)
[2021-02-24 04:57] LABS: Band 12 % (5-11); Hemoglobin 11.3 g/dL (14.0-18.0); Lymphocytes 6 % (21-51); MDiff Complete? YES; Macrocytosis MODERATE=16-30 cells (100X) (0-5/hpf); Mean Corpuscular HGB CONC 32.8 g/dL (32.0-36.0); Mean Corpuscular Hemoglobin 34.1 pg (27.0-31.0); Mean Platelet Volume 9.7 fL (7.4-10.4); Metamyelocyte 2 % (0-0); Monocytes 18 % (0-10); Neutrophil 62 % (42-75); Platelet Count 55 thou/uL (130-400); Platelet Morphology Comment Appears Decreased; Red Blood Cell (RBC) Count 3.32 mill/uL (4.70-6.10); White Blood Cell (WBC) Count 15.7 thou/uL (4.8-10.8)
[2021-02-24] MEDS: Magnesium Oxide 400 MG TAB PO SCH (07:55)
[2021-02-24] MEDS: Thiamine 100 MG TAB PO SCH (07:55)
[2021-02-24] MEDS: Folic Acid 1 MG TAB PO SCH (07:55)
[2021-02-24] MEDS: chlordiazePOXIDE HCl 25 MG CAP PO SCH ×3 (07:56→21:17)
[2021-02-24] MEDS: Rifaximin 550 MG TAB PO SCH ×2 (07:56→21:17)
[2021-02-24] MEDS: methylPREDNISolone Sod Succ 40 MG VIAL IVP SCH (07:56)
[2021-02-24] MEDS: Multivitamin W/ Minerals 1 TAB PO SCH (07:56)
[2021-02-24] MEDS: Pantoprazole 40 MG VIAL IVP SCH ×2 (07:57→21:17)
[2021-02-24] MEDS: Phytonadione 10 MG/ML AMP SC SCH (07:59)
[2021-02-24] MEDS: Dextrose 5%-Lactated Ringers 1,000 ML IV SCH (08:01)
[2021-02-24] MEDS: Midodrine HCl 5 MG TAB PER TUBE SCH ×2 (15:00→15:59)
[2021-02-25] MEDS: Lorazepam 2 MG/ML VIAL SLOW IVP PRN ×4 (02:52→21:08)
[2021-02-25] MEDS: Dextrose 5%-Lactated Ringers 1,000 ML IV SCH (02:53)
[2021-02-25 04:24] LABS: INR-International Normal Ratio 2.2; PTT 47.2 sec (22.9-36.1); Prothrombin Time 24.3 sec (12.0-14.7)
[2021-02-25 04:27] LABS: Band 9 % (5-11); Hemoglobin 10.6 g/dL (14.0-18.0); Hypochromia SLIGHT = 6-15 cells (100X) (0-5/hpf); Lymphocytes 8 % (21-51); MDiff Complete? YES; Macrocytosis SLIGHT = 6-15 cells (100X) (0-5/hpf); Mean Corpuscular HGB CONC 32.4 g/dL (32.0-36.0); Mean Corpuscular Hemoglobin 33.3 pg (27.0-31.0); Mean Platelet Volume 9.3 fL (7.4-10.4); Monocytes 8 % (0-10); Neutrophil 75 % (42-75); Platelet Count 64 thou/uL (130-400); Platelet Morphology Comment Appears Decreased; RBC Distribution Width 20.2 % (11.5-14.5); Red Blood Cell (RBC) Count 3.17 mill/uL (4.70-6.10); White Blood Cell (WBC) Count 16.2 thou/uL (4.8-10.8)
[2021-02-25 04:30] LABS: ALT (SGPT) 381 U/L (8-55); AST (SGOT) 343 U/L (5-34); Albumin 2.6 g/dL (3.5-5.0); Alkaline Phosphatase 120 U/L (40-110); Anion Gap 11 mmol/L (10-20); BUN (Urea Nitrogen) 21 mg/dL (8.9-20.6); Bilirubin, Total 21.6 mg/dL (0.2-1.2); Calc. Creatinine Clearance 138 mL/min (70-130); Carbon Dioxide 27 mmol/L (22-29); Chloride 102 mmol/L (98-107); Globulin 2.8 g/dL (2.4-3.5); Glucose 145 mg/dL (70-105); Potassium 3.6 mmol/L (3.5-5.1); Protein, Total 5.4 g/dL (6.0-8.3); Sodium 136 mmol/L (136-145)
[2021-02-25] MEDS: methylPREDNISolone Sod Succ 40 MG VIAL IVP SCH (07:44)
[2021-02-25] MEDS: Pantoprazole 40 MG VIAL IVP SCH (07:46)
[2021-02-25] MEDS: Magnesium Oxide 400 MG TAB PO SCH (07:47)
[2021-02-25] MEDS: Phytonadione 10 MG/ML AMP SC SCH (07:47)
[2021-02-25] MEDS: Multivitamin W/ Minerals 1 TAB PO SCH (07:47)
[2021-02-25] MEDS: Folic Acid 1 MG TAB PO SCH (07:47)
[2021-02-25] MEDS: Thiamine 100 MG TAB PO SCH (07:47)
[2021-02-25] MEDS: Rifaximin 550 MG TAB PO SCH ×2 (07:47→20:56)
[2021-02-25] MEDS: chlordiazePOXIDE HCl 25 MG CAP PO SCH ×2 (07:47→20:57)
[2021-02-26 04:10] LABS: Anion Gap 11 mmol/L (10-20); BUN (Urea Nitrogen) 17 mg/dL (8.9-20.6); Calc. Creatinine Clearance 164 mL/min (70-130); Carbon Dioxide 25 mmol/L (22-29); Chloride 103 mmol/L (98-107); Glucose 123 mg/dL (70-105); Potassium 4.1 mmol/L (3.5-5.1); Sodium 135 mmol/L (136-145)
[2021-02-26 04:33] LABS: Band 6 % (5-11); Hemoglobin 10.4 g/dL (14.0-18.0); Lymphocytes 6 % (21-51); MDiff Complete? YES; Macrocytosis SLIGHT = 6-15 cells (100X) (0-5/hpf); Mean Corpuscular HGB CONC 32.6 g/dL (32.0-36.0); Mean Corpuscular Hemoglobin 33.7 pg (27.0-31.0); Monocytes 11 % (0-10); Neutrophil 77 % (42-75); Platelet Count 40 thou/uL (130-400); Platelet Morphology Comment Appears Decreased; RBC Distribution Width 20.1 % (11.5-14.5); White Blood Cell (WBC) Count 14.4 thou/uL (4.8-10.8)
[2021-02-26] MEDS ORDERED: Spironolactone 25 MG TAB PO SCH (08:00)
[2021-02-26] MEDS ORDERED: predniSONE 20 MG TAB PO SCH (08:00)
[2021-02-26 08:29] LABS: SARS-CoV-2 PCR by NAA Not Detected (NotDetected)
[2021-02-26] MEDS ORDERED: Furosemide 20 MG TAB PO SCH (09:00)
[2021-02-26] MEDS: prednisoLONE 10 MG ODT TAB PO SCH (09:33)
[2021-02-26] MEDS: Folic Acid 1 MG TAB PO SCH (09:34)
[2021-02-26] MEDS: Nadolol 40 MG TAB PO SCH (09:35)
[2021-02-26] MEDS: Magnesium Oxide 400 MG TAB PO SCH (09:35)
[2021-02-26] MEDS: Rifaximin 550 MG TAB PO SCH ×2 (09:35→21:04)
[2021-02-26] MEDS: Multivitamin W/ Minerals 1 TAB PO SCH (09:35)
[2021-02-26] MEDS: chlordiazePOXIDE HCl 25 MG CAP PO SCH (09:38)
[2021-02-26] MEDS: Spironolactone 25 MG TAB PO SCH (21:04)
[2021-02-27] MEDS: Lorazepam 2 MG/ML VIAL SLOW IVP PRN (02:46)
[2021-02-27 06:57] LABS: INR-International Normal Ratio 2.2; Prothrombin Time 24.5 sec (12.0-14.7)
[2021-02-27 07:04] LABS: #Eosinphils 0.1 thou/uL (0.0-0.7); #Lymphocytes 1.3 thou/uL (1.20-3.40); #Monocytes 2.3 thou/uL (0.11-0.59); %Basophils 0.1 % (0.0-1.0); %Eosinophils 0.6 % (0.0-10.0); %Lymphocytes 7.4 % (21.0-51.0); %Monocytes 13.2 % (0.0-10.0); %Neutrophils 78.8 % (42.0-75.0); Hemoglobin 11.5 g/dL (14.0-18.0); Mean Corpuscular HGB CONC 32.8 g/dL (32.0-36.0); Mean Corpuscular Hemoglobin 34.4 pg (27.0-31.0); Mean Platelet Volume 10.3 fL (7.4-10.4); Platelet Count 50 thou/uL (130-400); RBC Distribution Width 19.8 % (11.5-14.5); Red Blood Cell (RBC) Count 3.36 mill/uL (4.70-6.10); White Blood Cell (WBC) Count 17.7 thou/uL (4.8-10.8)
[2021-02-27 07:08] LABS: ALT (SGPT) 247 U/L (8-55); AST (SGOT) 168 U/L (5-34); Albumin 2.6 g/dL (3.5-5.0); Alkaline Phosphatase 129 U/L (40-110); Anion Gap 7 mmol/L (10-20); BUN (Urea Nitrogen) 19 mg/dL (8.9-20.6); Calc. Creatinine Clearance 139 mL/min (70-130); Calcium 8.3 mg/dL (7.8-10.44); Carbon Dioxide 31 mmol/L (22-29); Chloride 101 mmol/L (98-107); Globulin 2.9 g/dL (2.4-3.5); Glucose 126 mg/dL (70-105); Potassium 4.3 mmol/L (3.5-5.1); Protein, Total 5.5 g/dL (6.0-8.3); Sodium 135 mmol/L (136-145)
[2021-02-27 07:17] LABS: Bilirubin, Total 28.5 mg/dL (0.2-1.2)
[2021-02-27 08:14] LABS: Band 13 % (5-11); Lymphocytes 7 % (21-51); MDiff Complete? YES; Macrocytosis SLIGHT = 6-15 cells (100X) (0-5/hpf); Monocytes 5 % (0-10); Neutrophil 68 % (42-75); Platelet Morphology Comment Appears Decreased; Polychromasia SLIGHT = 2-3 cells (100X) (0-2/hpf); Reactive Lymphocytes 7 % (0-10)
[2021-02-27] MEDS: Nadolol 40 MG TAB PO SCH (08:43)
[2021-02-27] MEDS: Multivitamin W/ Minerals 1 TAB PO SCH (08:43)
[2021-02-27] MEDS: Rifaximin 550 MG TAB PO SCH ×2 (08:43→20:46)
[2021-02-27] MEDS: Magnesium Oxide 400 MG TAB PO SCH (08:43)
[2021-02-27] MEDS: Furosemide 40 MG TAB PO SCH (08:43)
[2021-02-27] MEDS: Spironolactone 25 MG TAB PO SCH ×2 (08:44→20:45)
[2021-02-27] MEDS: Folic Acid 1 MG TAB PO SCH (08:44)
[2021-02-27] MEDS: prednisoLONE 10 MG ODT TAB PO SCH (10:14)
[2021-02-28 08:55] LABS: Hemoglobin 11.5 g/dL (14.0-18.0); Mean Corpuscular HGB CONC 31.6 g/dL (32.0-36.0); Red Blood Cell (RBC) Count 3.48 mill/uL (4.70-6.10)
[2021-02-28 09:12] LABS: ALT (SGPT) 209 U/L (8-55); AST (SGOT) 146 U/L (5-34); Albumin 2.5 g/dL (3.5-5.0); Alkaline Phosphatase 133 U/L (40-110); Anion Gap 11 mmol/L (10-20); BUN (Urea Nitrogen) 26 mg/dL (8.9-20.6); Calc. Creatinine Clearance 125 mL/min (70-130); Calcium 8.4 mg/dL (7.8-10.44); Carbon Dioxide 27 mmol/L (22-29); Chloride 100 mmol/L (98-107); Globulin 3.1 g/dL (2.4-3.5); Glucose 121 mg/dL (70-105); Potassium 4.4 mmol/L (3.5-5.1); Protein, Total 5.6 g/dL (6.0-8.3); Sodium 134 mmol/L (136-145)
[2021-02-28 09:22] LABS: Bilirubin, Total 33.7 mg/dL (0.2-1.2)
[2021-02-28 10:32] LABS: Anisocytosis SLIGHT = 6-15 cells (100X) (0-5/hpf); Band 2 % (5-11); Burr Cells SLIGHT = 2-5 cells (100X) (0-1/hpf); Lymphocytes 3 % (21-51); MDiff Complete? YES; Mean Platelet Volume 11.5 fL (7.4-10.4); Monocytes 11 % (0-10); Neutrophil 84 % (42-75); Ovalocytes SLIGHT = 2-5 cells (100X) (0-1/hpf); Platelet Count 56 thou/uL (130-400); Platelet Morphology Comment Appears Decreased; Vacuoles MODERATE; White Blood Cell (WBC) Count 24.2 thou/uL (4.8-10.8)
[2021-02-28] MEDS: Folic Acid 1 MG TAB PO SCH (10:49)
[2021-02-28] MEDS: prednisoLONE 10 MG ODT TAB PO SCH (10:49)
[2021-02-28] MEDS: Multivitamin W/ Minerals 1 TAB PO SCH (10:49)
[2021-02-28] MEDS: Magnesium Oxide 400 MG TAB PO SCH (10:49)
[2021-02-28] MEDS: Furosemide 40 MG TAB PO SCH (10:49)
[2021-02-28] MEDS: Spironolactone 25 MG TAB PO SCH ×2 (10:50→20:23)
[2021-02-28] MEDS: Rifaximin 550 MG TAB PO SCH ×2 (10:50→20:23)
[2021-02-28] MEDS: Nadolol 40 MG TAB PO SCH (10:50)
[2021-02-28] MEDS ORDERED: Sodium Bicarbonate 2.5 MEQ/5 ML VIAL ONE (13:45)
[2021-02-28] MEDS ORDERED: Lidocaine 1% PF 5 ML VIAL ONE (13:45)
[2021-02-28 15:35] LABS: RBC Count-Automated (BF) 186 /cu.mm; WBC/Nucleated-Auto (BF) 176 uL
[2021-02-28 15:55] LABS: BF Color Yellow; Body Fluid Source Peritoneal Fluid; Clarity Hazy (Clear); Tube # EDTA
[2021-02-28 15:57] LABS: Lymphocytes 20 %
[2021-02-28 15:58] LABS: BF Segmented Neutrophils 28 %; Cell Count Non Hematic 52 %
[2021-02-28] MEDS ORDERED: Labetalol HCl 100 MG/20 ML VIAL ONE (16:02)
[2021-03-01 05:50] LABS: #Basophils 0.1 thou/uL (0.0-0.2); #Eosinphils 0.1 thou/uL (0.0-0.7); #Lymphocytes 1.1 thou/uL (1.20-3.40); #Monocytes 2.6 thou/uL (0.11-0.59); #Neutrophils 23.2 thou/uL (1.40-6.50); %Basophils 0.2 % (0.0-1.0); %Eosinophils 0.4 % (0.0-10.0); %Monocytes 9.6 % (0.0-10.0); %Neutrophils 85.7 % (42.0-75.0); Hemoglobin 10.8 g/dL (14.0-18.0); Mean Corpuscular HGB CONC 33.2 g/dL (32.0-36.0); Mean Corpuscular Hemoglobin 34.6 pg (27.0-31.0); Mean Platelet Volume 11.4 fL (7.4-10.4); Platelet Count 56 thou/uL (130-400); RBC Distribution Width 20.3 % (11.5-14.5); Red Blood Cell (RBC) Count 3.11 mill/uL (4.70-6.10)
[2021-03-01 05:55] LABS: INR-International Normal Ratio 1.9; Prothrombin Time 22.2 sec (12.0-14.7)
[2021-03-01 06:27] LABS: ALT (SGPT) 191 U/L (8-55); AST (SGOT) 145 U/L (5-34); Albumin 2.5 g/dL (3.5-5.0); Alkaline Phosphatase 132 U/L (40-110); Anion Gap 11 mmol/L (10-20); BUN (Urea Nitrogen) 30 mg/dL (8.9-20.6); Calc. Creatinine Clearance 94 mL/min (70-130); Calcium 8.2 mg/dL (7.8-10.44); Carbon Dioxide 26 mmol/L (22-29); Chloride 96 mmol/L (98-107); Glucose 142 mg/dL (70-105); Potassium 4.2 mmol/L (3.5-5.1); Protein, Total 5.5 g/dL (6.0-8.3); Sodium 129 mmol/L (136-145)
[2021-03-01] MEDS: Nadolol 40 MG TAB PO SCH (09:34)
[2021-03-01] MEDS: Folic Acid 1 MG TAB PO SCH (09:34)
[2021-03-01] MEDS: Rifaximin 550 MG TAB PO SCH ×2 (09:34→23:02)
[2021-03-01] MEDS: Multivitamin W/ Minerals 1 TAB PO SCH (09:34)
[2021-03-01] MEDS: prednisoLONE 10 MG ODT TAB PO SCH (09:34)
[2021-03-01] MEDS: Spironolactone 25 MG TAB PO SCH ×2 (09:34→22:00)
[2021-03-01] MEDS: Furosemide 40 MG TAB PO SCH (09:34)
[2021-03-01] MEDS: Magnesium Oxide 400 MG TAB PO SCH (09:34)
[2021-03-01] MEDS: Albumin 25% 25 GM/100 ML BOT IVPB SCH ×2 (13:34→17:32)
[2021-03-02 06:44] LABS: Hemoglobin 9.9 g/dL (14.0-18.0); Mean Corpuscular HGB CONC 32.4 g/dL (32.0-36.0); Mean Corpuscular Hemoglobin 34.2 pg (27.0-31.0); Mean Platelet Volume 12.1 fL (7.4-10.4); Platelet Count 40 thou/uL (130-400); RBC Distribution Width 20.3 % (11.5-14.5); Red Blood Cell (RBC) Count 2.89 mill/uL (4.70-6.10); White Blood Cell (WBC) Count 24.6 thou/uL (4.8-10.8)
[2021-03-02 06:55] LABS: INR-International Normal Ratio 2.1; Prothrombin Time 23.6 sec (12.0-14.7)
[2021-03-02 07:07] LABS: #Basophils 0.2 thou/uL (0.0-0.2); #Lymphocytes 0.7 thou/uL (1.20-3.40); #Monocytes 2.3 thou/uL (0.11-0.59); #Neutrophils 21.4 thou/uL (1.40-6.50); %Basophils 0.8 % (0.0-1.0); %Eosinophils 0.2 % (0.0-10.0); %Lymphocytes 2.9 % (21.0-51.0); %Monocytes 9.2 % (0.0-10.0); %Neutrophils 86.9 % (42.0-75.0)
[2021-03-02 07:16] LABS: Bilirubin, Total 36.7 mg/dL (0.2-1.2)
[2021-03-02 07:51] LABS: ALT (SGPT) 150 U/L (8-55); AST (SGOT) 119 U/L (5-34); Albumin 2.8 g/dL (3.5-5.0); Alkaline Phosphatase 126 U/L (40-110); Anion Gap 11 mmol/L (10-20); BUN (Urea Nitrogen) 31 mg/dL (8.9-20.6); Calc. Creatinine Clearance 77 mL/min (70-130); Calcium 8.4 mg/dL (7.8-10.44); Carbon Dioxide 26 mmol/L (22-29); Chloride 94 mmol/L (98-107); Globulin 2.7 g/dL (2.4-3.5); Glucose 165 mg/dL (70-105); Potassium 4.1 mmol/L (3.5-5.1); Protein, Total 5.5 g/dL (6.0-8.3); Sodium 127 mmol/L (136-145)
[2021-03-02] MEDS: Folic Acid 1 MG TAB PO SCH (08:34)
[2021-03-02] MEDS: Nadolol 40 MG TAB PO SCH (08:34)
[2021-03-02] MEDS: prednisoLONE 10 MG ODT TAB PO SCH (08:34)
[2021-03-02] MEDS: Magnesium Oxide 400 MG TAB PO SCH (08:34)
[2021-03-02] MEDS: Multivitamin W/ Minerals 1 TAB PO SCH (08:35)
[2021-03-02] MEDS: Rifaximin 550 MG TAB PO SCH ×2 (08:35→20:46)
[2021-03-02] MEDS: Spironolactone 25 MG TAB PO SCH ×2 (08:35→20:46)
[2021-03-02] MEDS ORDERED: Albumin 25% 25 GM/100 ML BOT IVPB SCH (09:00)
[2021-03-02] MEDS: Octreotide Acetate 100 MCG/ML VIAL SC SCH ×2 (10:24→18:03)
[2021-03-02] MEDS ORDERED: Lidocaine 1% PF 5 ML VIAL ONE (12:15)
[2021-03-02] MEDS ORDERED: Sodium Bicarbonate 2.5 MEQ/5 ML VIAL ONE (12:15)
[2021-03-02] MEDS: Albumin 25% 25 GM/100 ML BOT IVPB SCH ×3 (13:46→23:45)
[2021-03-02] MEDS: Midodrine HCl 5 MG TAB PO SCH ×2 (15:23→20:46)
[2021-03-03] MEDS: Octreotide Acetate 100 MCG/ML VIAL SC SCH ×3 (01:43→18:51)
[2021-03-03] MEDS: Albumin 25% 25 GM/100 ML BOT IVPB SCH ×3 (06:17→23:41)
[2021-03-03 07:02] LABS: #Eosinphils 0.1 thou/uL (0.0-0.7); #Lymphocytes 0.8 thou/uL (1.20-3.40); #Monocytes 2.3 thou/uL (0.11-0.59); #Neutrophils 15.9 thou/uL (1.40-6.50); %Basophils 0.1 % (0.0-1.0); %Eosinophils 0.4 % (0.0-10.0); %Lymphocytes 4.1 % (21.0-51.0); %Monocytes 11.9 % (0.0-10.0); %Neutrophils 83.5 % (42.0-75.0); Hemoglobin 8.8 g/dL (14.0-18.0); Mean Corpuscular HGB CONC 32.2 g/dL (32.0-36.0); Mean Corpuscular Hemoglobin 34.2 pg (27.0-31.0); Mean Platelet Volume 12.2 fL (7.4-10.4); Platelet Count 37 thou/uL (130-400); RBC Distribution Width 20.6 % (11.5-14.5); Red Blood Cell (RBC) Count 2.57 mill/uL (4.70-6.10)
[2021-03-03 07:10] LABS: INR-International Normal Ratio 2.4; Prothrombin Time 26.4 sec (12.0-14.7)
[2021-03-03 07:19] LABS: ALT (SGPT) 104 U/L (8-55); AST (SGOT) 84 U/L (5-34); Alkaline Phosphatase 100 U/L (40-110); Anion Gap 8 mmol/L (10-20); BUN (Urea Nitrogen) 30 mg/dL (8.9-20.6); Calc. Creatinine Clearance 70 mL/min (70-130); Calcium 8.2 mg/dL (7.8-10.44); Carbon Dioxide 28 mmol/L (22-29); Chloride 97 mmol/L (98-107); Glucose 150 mg/dL (70-105); Potassium 4.4 mmol/L (3.5-5.1); Sodium 129 mmol/L (136-145)
[2021-03-03 07:30] LABS: Bilirubin, Total 32.9 mg/dL (0.2-1.2)
[2021-03-03 08:27] LABS: Eosinophils 1 % (0-10); Lymphocytes 10 % (21-51); MDiff Complete? YES; Macrocytosis SLIGHT = 6-15 cells (100X) (0-5/hpf); Monocytes 10 % (0-10); Neutrophil 78 % (42-75); Platelet Morphology Comment Appears Decreased; Polychromasia SLIGHT = 2-3 cells (100X) (0-2/hpf); Reactive Lymphocytes 1 % (0-10); Schistocytes SLIGHT = 2-5 cells (100X) (0-1/hpf)
[2021-03-03] MEDS: Spironolactone 25 MG TAB PO SCH ×2 (09:01→21:04)
[2021-03-03] MEDS: Nadolol 40 MG TAB PO SCH (09:01)
[2021-03-03] MEDS: prednisoLONE 10 MG ODT TAB PO SCH (09:01)
[2021-03-03] MEDS: Multivitamin W/ Minerals 1 TAB PO SCH (09:01)
[2021-03-03] MEDS: Magnesium Oxide 400 MG TAB PO SCH (09:01)
[2021-03-03] MEDS: Folic Acid 1 MG TAB PO SCH (09:02)
[2021-03-03] MEDS: Midodrine HCl 5 MG TAB PO SCH ×3 (09:02→21:04)
[2021-03-03] MEDS: Rifaximin 550 MG TAB PO SCH ×2 (09:02→21:04)
[2021-03-04] MEDS: Octreotide Acetate 100 MCG/ML VIAL SC SCH ×3 (02:25→17:45)
[2021-03-04] MEDS: Albumin 25% 25 GM/100 ML BOT IVPB SCH ×2 (06:02→14:57)
[2021-03-04 07:26] LABS: Mean Corpuscular HGB CONC 32.3 g/dL (32.0-36.0); Mean Corpuscular Hemoglobin 34.8 pg (27.0-31.0); Mean Platelet Volume 6.9 fL (7.4-10.4); Platelet Count 56 thou/uL (130-400); RBC Distribution Width 20.6 % (11.5-14.5); Red Blood Cell (RBC) Count 2.88 mill/uL (4.70-6.10); White Blood Cell (WBC) Count 21.5 thou/uL (4.8-10.8)
[2021-03-04 07:32] LABS: Bilirubin, Total 33.7 mg/dL (0.2-1.2)
[2021-03-04 07:38] LABS: INR-International Normal Ratio 2.4; Prothrombin Time 26.3 sec (12.0-14.7)
[2021-03-04 07:52] LABS: ALT (SGPT) 90 U/L (8-55); AST (SGOT) 79 U/L (5-34); Albumin 3.2 g/dL (3.5-5.0); Alkaline Phosphatase 133 U/L (40-110); Anion Gap 13 mmol/L (10-20); BUN (Urea Nitrogen) 26 mg/dL (8.9-20.6); Calc. Creatinine Clearance 72 mL/min (70-130); Calcium 8.4 mg/dL (7.8-10.44); Carbon Dioxide 24 mmol/L (22-29); Chloride 98 mmol/L (98-107); Globulin 2.1 g/dL (2.4-3.5); Glucose 162 mg/dL (70-105); Potassium 4.8 mmol/L (3.5-5.1); Protein, Total 5.3 g/dL (6.0-8.3); Sodium 130 mmol/L (136-145)
[2021-03-04] MEDS: Rifaximin 550 MG TAB PO SCH ×2 (07:57→20:28)
[2021-03-04] MEDS: Spironolactone 25 MG TAB PO SCH ×2 (07:58→20:28)
[2021-03-04] MEDS: Nadolol 40 MG TAB PO SCH (07:58)
[2021-03-04] MEDS: Multivitamin W/ Minerals 1 TAB PO SCH (07:58)
[2021-03-04] MEDS: Folic Acid 1 MG TAB PO SCH (07:58)
[2021-03-04] MEDS: Midodrine HCl 5 MG TAB PO SCH ×3 (07:58→20:28)
[2021-03-04] MEDS: Magnesium Oxide 400 MG TAB PO SCH (07:58)
[2021-03-04] MEDS: prednisoLONE 10 MG ODT TAB PO SCH (07:59)
[2021-03-04 08:14] LABS: Band 2 % (5-11); Lymphocytes 3 % (21-51); MDiff Complete? YES; Macrocytosis MODERATE=16-30 cells (100X) (0-5/hpf); Monocytes 9 % (0-10); Neutrophil 86 % (42-75); Ovalocytes SLIGHT = 2-5 cells (100X) (0-1/hpf); Platelet Morphology Comment Appears Decreased; Polychromasia SLIGHT = 2-3 cells (100X) (0-2/hpf)
[2021-03-05] MEDS: Octreotide Acetate 100 MCG/ML VIAL SC SCH ×2 (02:03→10:40)
[2021-03-05 06:50] LABS: Hemoglobin 11.1 g/dL (14.0-18.0); Mean Corpuscular HGB CONC 31.4 g/dL (32.0-36.0); Mean Corpuscular Hemoglobin 33.9 pg (27.0-31.0); Mean Platelet Volume 11.6 fL (7.4-10.4); Platelet Count 60 thou/uL (130-400); RBC Distribution Width 20.6 % (11.5-14.5); Red Blood Cell (RBC) Count 3.29 mill/uL (4.70-6.10); White Blood Cell (WBC) Count 19.4 thou/uL (4.8-10.8)
[2021-03-05 06:55] LABS: INR-International Normal Ratio 2.4; Prothrombin Time 26.2 sec (12.0-14.7)
[2021-03-05 07:28] LABS: ALT (SGPT) 91 U/L (8-55); AST (SGOT) 91 U/L (5-34); Albumin 3.4 g/dL (3.5-5.0); Alkaline Phosphatase 147 U/L (40-110); Anion Gap 14 mmol/L (10-20); BUN (Urea Nitrogen) 23 mg/dL (8.9-20.6); Calc. Creatinine Clearance 88 mL/min (70-130); Calcium 8.8 mg/dL (7.8-10.44); Carbon Dioxide 23 mmol/L (22-29); Chloride 97 mmol/L (98-107); Globulin 2.2 g/dL (2.4-3.5); Glucose 142 mg/dL (70-105); Protein, Total 5.6 g/dL (6.0-8.3); Sodium 129 mmol/L (136-145)
[2021-03-05 07:46] LABS: #Eosinphils 0.2 thou/uL (0.0-0.7); #Monocytes 2.9 thou/uL (0.11-0.59); #Neutrophils 15.4 thou/uL (1.40-6.50); %Basophils 0.1 % (0.0-1.0); %Eosinophils 0.8 % (0.0-10.0); %Lymphocytes 4.9 % (21.0-51.0); %Monocytes 14.7 % (0.0-10.0); %Neutrophils 79.5 % (42.0-75.0); Band 1 % (5-11); Burr Cells SLIGHT = 2-5 cells (100X) (0-1/hpf); Eosinophils 1 % (0-10); Lymphocytes 9 % (21-51); MDiff Complete? YES; Monocytes 12 % (0-10); Neutrophil 77 % (42-75); Platelet Morphology Comment Appears Decreased; Polychromasia SLIGHT = 2-3 cells (100X) (0-2/hpf)
[2021-03-05] MEDS: Multivitamin W/ Minerals 1 TAB PO SCH (08:26)
[2021-03-05] MEDS: Rifaximin 550 MG TAB PO SCH (08:26)
[2021-03-05] MEDS: Spironolactone 25 MG TAB PO SCH ×2 (08:26→21:33)
[2021-03-05] MEDS: Nadolol 40 MG TAB PO SCH (08:26)
[2021-03-05] MEDS: Folic Acid 1 MG TAB PO SCH (08:26)
[2021-03-05] MEDS: Midodrine HCl 5 MG TAB PO SCH (08:26)
[2021-03-05] MEDS: Magnesium Oxide 400 MG TAB PO SCH (08:26)
[2021-03-05] MEDS: prednisoLONE 10 MG ODT TAB PO SCH (08:26)
[2021-03-05] MEDS ORDERED: Phytonadione 10 MG/ML AMP SC SCH (15:45)
[2021-03-05 17:25] LABS: SARS-CoV-2 PCR by NAA Not Detected (NotDetected)
[2021-03-06 05:59] LABS: INR-International Normal Ratio 2.3; Prothrombin Time 25.5 sec (12.0-14.7)
[2021-03-06 06:05] LABS: Band 4 % (5-11); Hemoglobin 11.7 g/dL (14.0-18.0); Hypochromia SLIGHT = 6-15 cells (100X) (0-5/hpf); Lymphocytes 3 % (21-51); MDiff Complete? YES; Macrocytosis SLIGHT = 6-15 cells (100X) (0-5/hpf); Mean Corpuscular Hemoglobin 35.6 pg (27.0-31.0); Mean Platelet Volume 11.2 fL (7.4-10.4); Monocytes 18 % (0-10); Neutrophil 75 % (42-75); Platelet Count 86 thou/uL (130-400); Platelet Morphology Comment Appears Decreased; RBC Distribution Width 21.1 % (11.5-14.5); Red Blood Cell (RBC) Count 3.29 mill/uL (4.70-6.10); White Blood Cell (WBC) Count 26.3 thou/uL (4.8-10.8)
[2021-03-06 06:27] LABS: Bilirubin, Total 38.2 mg/dL (0.2-1.2)
[2021-03-06 06:44] LABS: ALT (SGPT) 92 U/L (8-55); AST (SGOT) 90 U/L (5-34); Albumin 3.1 g/dL (3.5-5.0); Alkaline Phosphatase 151 U/L (40-110); Anion Gap 12 mmol/L (10-20); BUN (Urea Nitrogen) 25 mg/dL (8.9-20.6); Calc. Creatinine Clearance 80 mL/min (70-130); Calcium 8.7 mg/dL (7.8-10.44); Carbon Dioxide 26 mmol/L (22-29); Chloride 96 mmol/L (98-107); Globulin 2.3 g/dL (2.4-3.5); Glucose 120 mg/dL (70-105); Potassium 4.9 mmol/L (3.5-5.1); Protein, Total 5.4 g/dL (6.0-8.3); Sodium 129 mmol/L (136-145)
[2021-03-06] MEDS: Spironolactone 25 MG TAB PO SCH ×2 (08:03→22:00)
[2021-03-06] MEDS: Nadolol 40 MG TAB PO SCH (08:03)
[2021-03-06] MEDS: Folic Acid 1 MG TAB PO SCH (08:04)
[2021-03-06] MEDS: Magnesium Oxide 400 MG TAB PO SCH (08:04)
[2021-03-06] MEDS: prednisoLONE 10 MG ODT TAB PO SCH (08:04)
[2021-03-06] MEDS: Multivitamin W/ Minerals 1 TAB PO SCH (08:04)
[2021-03-06] MEDS ORDERED: Sodium Bicarbonate 2.5 MEQ/5 ML VIAL ONE (08:44)
[2021-03-06] MEDS ORDERED: Lidocaine 1% PF 5 ML VIAL ONE (08:44)
[2021-03-06] MEDS ORDERED: Rifaximin 550 MG TAB PO SCH (11:30)
[2021-03-06] MEDS: Albumin 25% 25 GM/100 ML BOT IVPB SCH ×3 (11:33→23:21)
[2021-03-06] MEDS: Rifaximin 550 MG TAB PO SCH (22:00)
[2021-03-07 05:02] VITALS: BMI 27.4
[2021-03-07 07:01] LABS: INR-International Normal Ratio 2.5; Prothrombin Time 27.1 sec (12.0-14.7)
[2021-03-07 07:08] LABS: ALT (SGPT) 75 U/L (8-55); AST (SGOT) 78 U/L (5-34); Albumin 3.3 g/dL (3.5-5.0); Alkaline Phosphatase 125 U/L (40-110); Anion Gap 12 mmol/L (10-20); BUN (Urea Nitrogen) 29 mg/dL (8.9-20.6); Calc. Creatinine Clearance 81 mL/min (70-130); Calcium 8.9 mg/dL (7.8-10.44); Carbon Dioxide 25 mmol/L (22-29); Chloride 98 mmol/L (98-107); Globulin 1.8 g/dL (2.4-3.5); Glucose 128 mg/dL (70-105); Potassium 4.9 mmol/L (3.5-5.1); Protein, Total 5.1 g/dL (6.0-8.3); Sodium 130 mmol/L (136-145)
[2021-03-07 07:48] LABS: Mean Corpuscular HGB CONC 33.2 g/dL (32.0-36.0); Mean Corpuscular Hemoglobin 35.7 pg (27.0-31.0); RBC Distribution Width 20.9 % (11.5-14.5); Red Blood Cell (RBC) Count 2.79 mill/uL (4.70-6.10); White Blood Cell (WBC) Count 23.8 thou/uL (4.8-10.8)
[2021-03-07 08:20] LABS: Anisocytosis SLIGHT = 6-15 cells (100X) (0-5/hpf); Burr Cells SLIGHT = 2-5 cells (100X) (0-1/hpf); Lymphocytes 4 % (21-51); MDiff Complete? YES; Mean Platelet Volume 10.5 fL (7.4-10.4); Monocytes 16 % (0-10); Neutrophil 80 % (42-75); Ovalocytes SLIGHT = 2-5 cells (100X) (0-1/hpf); Platelet Count 85 thou/uL (130-400); Platelet Morphology Comment Appears Decreased
[2021-03-07] MEDS: Rifaximin 550 MG TAB PO SCH ×2 (08:35→21:00)
[2021-03-07] MEDS: prednisoLONE 10 MG ODT TAB PO SCH (08:35)
[2021-03-07] MEDS: Spironolactone 25 MG TAB PO SCH ×2 (08:36→20:59)
[2021-03-07] MEDS: Multivitamin W/ Minerals 1 TAB PO SCH (08:36)
[2021-03-07] MEDS: Magnesium Oxide 400 MG TAB PO SCH (08:36)
[2021-03-07] MEDS: Folic Acid 1 MG TAB PO SCH (08:36)
[2021-03-07] MEDS: Nadolol 40 MG TAB PO SCH (08:36)
[2021-03-07] MEDS ORDERED: Lidocaine 5% Patch TD SCH (11:00)
[2021-03-07] MEDS: traMADol HCl 50 MG TAB PO PRN (11:09)
[2021-03-07] MEDS: Lidocaine 5% Patch TD SCH (11:09)
[2021-03-07] MEDS: Transdermal Patch Removal TOP SCH (21:41)
[2021-03-08] MEDS: traMADol HCl 50 MG TAB PO PRN (08:38)
[2021-03-08] MEDS: Spironolactone 25 MG TAB PO SCH (08:39)
[2021-03-08] MEDS: Magnesium Oxide 400 MG TAB PO SCH (08:39)
[2021-03-08] MEDS: Folic Acid 1 MG TAB PO SCH (08:40)
[2021-03-08] MEDS: Multivitamin W/ Minerals 1 TAB PO SCH (08:40)
[2021-03-08] MEDS: Rifaximin 550 MG TAB PO SCH ×2 (08:40→21:36)
[2021-03-08] MEDS: Nadolol 40 MG TAB PO SCH (08:40)
[2021-03-08] MEDS: Lidocaine 5% Patch TD SCH (08:41)
[2021-03-08] MEDS ORDERED: Sodium Chloride 0.9% 500 ML IV SCH (09:00)
[2021-03-08 09:05] LABS: Hemoglobin 6.5 g/dL (14.0-18.0); Mean Corpuscular HGB CONC 32.2 g/dL (32.0-36.0); Mean Corpuscular Hemoglobin 35.3 pg (27.0-31.0); Mean Platelet Volume 10.5 fL (7.4-10.4); Platelet Count 122 thou/uL (130-400); RBC Distribution Width 21.2 % (11.5-14.5); Red Blood Cell (RBC) Count 1.84 mill/uL (4.70-6.10); White Blood Cell (WBC) Count 21.4 thou/uL (4.8-10.8)
[2021-03-08 09:15] LABS: ALT (SGPT) 76 U/L (8-55); AST (SGOT) 103 U/L (5-34); Albumin 2.4 g/dL (3.5-5.0); Alkaline Phosphatase 96 U/L (40-110); Anion Gap 12 mmol/L (10-20); BUN (Urea Nitrogen) 41 mg/dL (8.9-20.6); Calc. Creatinine Clearance 61 mL/min (70-130); Calcium 8.4 mg/dL (7.8-10.44); Carbon Dioxide 24 mmol/L (22-29); Chloride 99 mmol/L (98-107); Globulin 1.5 g/dL (2.4-3.5); Glucose 131 mg/dL (70-105); Protein, Total 3.9 g/dL (6.0-8.3); Sodium 129 mmol/L (136-145)
[2021-03-08 09:25] LABS: Bilirubin, Total 31.9 mg/dL (0.2-1.2)
[2021-03-08] MEDS ORDERED: Dextrose 50% Abboject 50 ML SYRINGE SLOW IVP SCH ×2 (09:27→23:00)
[2021-03-08] MEDS ORDERED: Insulin Regular 300 UNITS/3 ML VIAL IVP SCH ×3 (09:30→23:15)
[2021-03-08] MEDS: prednisoLONE 10 MG ODT TAB PO SCH (09:34)
[2021-03-08] MEDS ORDERED: Morphine 2 MG/ML VIAL SLOW IVP PRN ×2 (09:45→15:15)
[2021-03-08 10:19] LABS: Prothrombin Time 47.6 sec (12.0-14.7)
[2021-03-08] MEDS ORDERED: Sodium Bicarb 50 MEQ/50 ML Abboject 8.4% SYRINGE ONE ×3 (10:21→10:36)
[2021-03-08] MEDS ORDERED: EPINEPHrine 1 MG/10 ML Abboject SYRINGE ONE ×3 (10:21→10:36)
[2021-03-08] MEDS ORDERED: Morphine 4 MG/ML VIAL ONE (10:55)
[2021-03-08 11:30] LABS: Hemoglobin 4.2 g/dL (14.0-18.0); Mean Corpuscular HGB CONC 34.2 g/dL (32.0-36.0); Mean Corpuscular Hemoglobin 36.7 pg (27.0-31.0); RBC Distribution Width 21.6 % (11.5-14.5); Red Blood Cell (RBC) Count 1.14 mill/uL (4.70-6.10)
[2021-03-08 11:30] LABS: INR-International Normal Ratio 5.1
[2021-03-08 11:38] LABS: Prothrombin Time 63.6 sec (12.0-14.7)
[2021-03-08 11:43] LABS: Actual Bicarbonate (HCO3a) 18.8 mEq/L (22-28); Base Excess (BEa) -6.7 mEq/L (-2.0 to +3.0); Carboxyhemoglobin (COHb) 2.6 gm% (0.0-3.0); Potassium - ABG Lab 5.99 mmol/L (3.70-5.30); pH, Arterial 7.31 (7.35-7.45)
[2021-03-08 11:44] LABS: Hemoglobin (Hb) 4.6 g/dL (14.0-18.0); O2 Tension (PaO2), arterial 518.6 mmHg (80.0-100.0)
[2021-03-08] MEDS ORDERED: Pantoprazole 40 MG VIAL IVP SCH (11:45)
[2021-03-08 11:46] LABS: Puncture Site RRA
[2021-03-08 11:48] LABS: INR-International Normal Ratio 7.4
[2021-03-08 11:51] LABS: ALT (SGPT) 84 U/L (8-55); AST (SGOT) 130 U/L (5-34); Alkaline Phosphatase 59 U/L (40-110); Anion Gap 19 mmol/L (10-20); BUN (Urea Nitrogen) 40 mg/dL (8.9-20.6); Bilirubin, Total 23.4 mg/dL (0.2-1.2); Calc. Creatinine Clearance 56 mL/min (70-130); Calcium 7.5 mg/dL (7.8-10.44); Carbon Dioxide 19 mmol/L (22-29); Chloride 100 mmol/L (98-107); Globulin 0.8 g/dL (2.4-3.5); Glucose 146 mg/dL (70-105); Potassium 6.5 mmol/L (3.5-5.1); Protein, Total 3.8 g/dL (6.0-8.3); Sodium 131 mmol/L (136-145)
[2021-03-08 11:54] LABS: Troponin I 0.126 ng/mL (< 0.028)
[2021-03-08 11:56] LABS: #Basophils 0.1 thou/uL (0.0-0.2); #Eosinphils 0.3 thou/uL (0.0-0.7); #Monocytes 2.4 thou/uL (0.11-0.59); #Neutrophils 13.7 thou/uL (1.40-6.50); %Basophils 0.4 % (0.0-1.0); %Eosinophils 1.6 % (0.0-10.0); %Lymphocytes 10.7 % (21.0-51.0); %Monocytes 13.1 % (0.0-10.0); %Neutrophils 74.1 % (42.0-75.0); Mean Platelet Volume 10.4 fL (7.4-10.4); Platelet Count 59 thou/uL (130-400); Platelet Morphology Comment Appears Decreased; White Blood Cell (WBC) Count 18.5 thou/uL (4.8-10.8)
[2021-03-08] MEDS ORDERED: Phytonadione 10 MG/ML AMP SC SCH (12:00)
[2021-03-08] MEDS ORDERED: Pantoprazole 80 MG in Sodium Chloride 0.9% 100 ML IVP SCH (12:00)
[2021-03-08 12:08] LABS: Lactic Acid 8.3 mmol/L (0.5-2.2)
[2021-03-08] MEDS ORDERED: Calcium Gluconate 4.6 MEQ in Sodium Chloride 0.9% 100 ML IVPB SCH ×3 (12:15→23:30)
[2021-03-08] MEDS ORDERED: Albuterol Sulfate 2.5 mg/0.5 ml Neb NEB SCH (12:30)
[2021-03-08] MEDS ORDERED: Propofol 1,000 MG/100 ML VIAL IV ONE (12:36)
[2021-03-08] MEDS ORDERED: Fentanyl 100 MCG/2 ML VIAL ONE (12:37)
[2021-03-08] MEDS ORDERED: Fentanyl CADD 100 ML ONE (12:38)
[2021-03-08] MEDS ORDERED: Octreotide Acetate 50 MCG/ML AMP SLOW IVP SCH (12:45)
[2021-03-08] MEDS: Octreotide Acetate 1,250 MCG in Sodium Chloride 0.9% 250 ML 250 ML IVPB SCH (13:29)
[2021-03-08] MEDS: cefTRIAXone\\ROCEPHIN 1 GM in Sodium Chloride 0.9% 100 ML IVPB SCH (14:22)
[2021-03-08] MEDS ORDERED: DISCONTINUE PREVIOUS NARCOTIC PAIN MEDICATIONS AND BENZODIAZEPINES FS SCH (15:15)
[2021-03-08] MEDS ORDERED: Lorazepam 2 MG/ML VIAL SLOW IVP PRN (15:15)
[2021-03-08] MEDS ORDERED: Propofol BOLUS 1,000 MG/100 ML VIAL IV PRN (15:15)
[2021-03-08] MEDS ORDERED: Fentanyl BOLUS 250 ML IVPB PRN (15:15)
[2021-03-08] MEDS ORDERED: Propofol 1,000 MG/100 ML VIAL IV PRN (15:15)
[2021-03-08 15:27] LABS: Hemoglobin 7.1 g/dL (14.0-18.0); Mean Corpuscular HGB CONC 33.9 g/dL (32.0-36.0); Mean Corpuscular Hemoglobin 30.9 pg (27.0-31.0); Mean Corpuscular Volume 91.2 fL (78.0-98.0); Mean Platelet Volume 8.6 fL (7.4-10.4); Platelet Count 107 thou/uL (130-400); RBC Distribution Width 20.3 % (11.5-14.5); White Blood Cell (WBC) Count 20.1 thou/uL (4.8-10.8)
[2021-03-08 15:35] LABS: INR-International Normal Ratio 2.8; PTT 63.7 sec (22.9-36.1); Prothrombin Time 29.8 sec (12.0-14.7)
[2021-03-08 15:43] LABS: Anion Gap 20 mmol/L (10-20); BUN (Urea Nitrogen) 40 mg/dL (8.9-20.6); Calc. Creatinine Clearance 55 mL/min (70-130); Carbon Dioxide 18 mmol/L (22-29); Chloride 100 mmol/L (98-107); Sodium 131 mmol/L (136-145)
[2021-03-08 15:44] LABS: Calcium 8.1 mg/dL (7.8-10.44); Glucose 113 mg/dL (70-105)
[2021-03-08 15:48] LABS: Anisocytosis SLIGHT = 6-15 cells (100X) (0-5/hpf); Band 11 % (5-11); Basophilic Stippling SLIGHT = 1-2 cells (100X) (None Seen); Lymphocytes 4 % (21-51); MDiff Complete? YES; Metamyelocyte 1 % (0-0); Monocytes 8 % (0-10); Neutrophil 76 % (42-75); Ovalocytes SLIGHT = 2-5 cells (100X) (0-1/hpf); Platelet Morphology Comment Appears Decreased; Polychromasia SLIGHT = 2-3 cells (100X) (0-2/hpf); Vacuoles SLIGHT
[2021-03-08 15:55] LABS: Potassium 6.7 mmol/L (3.5-5.1)
[2021-03-08] MEDS ORDERED: Dextrose 50% Abboject 50 ML SYRINGE SLOW IVP STA (17:17)
[2021-03-08] MEDS ORDERED: Albuterol Sulfate 2.5 mg/3 ml Neb NEB SCH (17:30)
[2021-03-08] MEDS ORDERED: Furosemide 40 MG/4 ML VIAL SLOW IVP SCH (17:30)
[2021-03-08] MEDS ORDERED: Sodium Bicarbonate 150 MEQ in Dextrose 5% in Water 1,000 ML IV SCH (17:30)
[2021-03-08 18:07] LABS: Hemoglobin 6.9 g/dL (14.0-18.0); Mean Corpuscular HGB CONC 33.7 g/dL (32.0-36.0); Mean Corpuscular Hemoglobin 30.6 pg (27.0-31.0); Mean Corpuscular Volume 90.9 fL (78.0-98.0); Mean Platelet Volume 8.6 fL (7.4-10.4); Platelet Count 106 thou/uL (130-400); RBC Distribution Width 20.8 % (11.5-14.5); Red Blood Cell (RBC) Count 2.23 mill/uL (4.70-6.10); White Blood Cell (WBC) Count 23.3 thou/uL (4.8-10.8)
[2021-03-08] MEDS ORDERED: Norepinephrine 8 MG/0.9% NS 250 ML ONE (21:27)
[2021-03-08] MEDS: methylPREDNISolone Sod Succ 40 MG VIAL IVP SCH (21:32)
[2021-03-08] MEDS: Transdermal Patch Removal TOP SCH (21:37)
[2021-03-08 22:08] LABS: Anion Gap 16 mmol/L (10-20); BUN (Urea Nitrogen) 40 mg/dL (8.9-20.6); Calc. Creatinine Clearance 45 mL/min (70-130); Calcium 8.3 mg/dL (7.8-10.44); Carbon Dioxide 20 mmol/L (22-29); Chloride 100 mmol/L (98-107); Glucose 132 mg/dL (70-105); Sodium 129 mmol/L (136-145)
[2021-03-08 22:12] LABS: Potassium 6.9 mmol/L (3.5-5.1)
[2021-03-09 00:53] LABS: Hemoglobin 7.8 g/dL (14.0-18.0); Mean Corpuscular HGB CONC 34.6 g/dL (32.0-36.0); Mean Corpuscular Hemoglobin 30.9 pg (27.0-31.0); Mean Corpuscular Volume 89.5 fL (78.0-98.0); Mean Platelet Volume 9.8 fL (7.4-10.4); Platelet Count 102 thou/uL (130-400); RBC Distribution Width 19.9 % (11.5-14.5); Red Blood Cell (RBC) Count 2.51 mill/uL (4.70-6.10); White Blood Cell (WBC) Count 26.1 thou/uL (4.8-10.8)
[2021-03-09] MEDS ORDERED: Norepinephrine 8 MG/0.9% NS 250 ML ONE (03:42)
[2021-03-09 04:52] LABS: Prothrombin Time 49.9 sec (12.0-14.7)
[2021-03-09 05:07] LABS: INR-International Normal Ratio 5.4
[2021-03-09 05:15] LABS: Bilirubin, Total 32.3 mg/dL (0.2-1.2)
[2021-03-09 05:23] LABS: ALT (SGPT) 3783 U/L (8-55); AST (SGOT) Greater than 3500 U/L (5-34); Albumin 2.9 g/dL (3.5-5.0); Alkaline Phosphatase 97 U/L (40-110); Anion Gap 14 mmol/L (10-20); BUN (Urea Nitrogen) 48 mg/dL (8.9-20.6); Calc. Creatinine Clearance 19 mL/min (70-130); Calcium 8.5 mg/dL (7.8-10.44); Carbon Dioxide 24 mmol/L (22-29); Chloride 100 mmol/L (98-107); Globulin 1.2 g/dL (2.4-3.5); Glucose 159 mg/dL (70-105); Potassium 6.3 mmol/L (3.5-5.1); Protein, Total 4.1 g/dL (6.0-8.3); Sodium 132 mmol/L (136-145)
[2021-03-09 05:42] LABS: Hemoglobin 7.8 g/dL (14.0-18.0); Mean Corpuscular HGB CONC 34.5 g/dL (32.0-36.0); Mean Corpuscular Volume 89.9 fL (78.0-98.0); Mean Platelet Volume 9.5 fL (7.4-10.4); Platelet Count 104 thou/uL (130-400); RBC Distribution Width 20.2 % (11.5-14.5)
[2021-03-09 05:43] LABS: Band 5 % (5-11); Lymphocytes 13 % (21-51); MDiff Complete? YES; Monocytes 13 % (0-10); Neutrophil 69 % (42-75); Platelet Morphology Comment Appears Adequate; Polychromasia SLIGHT = 2-3 cells (100X) (0-2/hpf)
[2021-03-09] MEDS ORDERED: Heparin 10,000 UNITS/ 10 ML VIAL ONE (08:22)
[2021-03-09] MEDS ORDERED: Phytonadione 10 MG/ML AMP SC SCH (08:30)
[2021-03-09] MEDS ORDERED: Fentanyl CADD 100 ML ONE (09:08)
[2021-03-09] MEDS: Fentanyl CADD 100 ML IV SCH (09:16)
[2021-03-09 09:18] LABS: Mean Corpuscular HGB CONC 33.8 g/dL (32.0-36.0); Mean Corpuscular Hemoglobin 30.7 pg (27.0-31.0); Mean Corpuscular Volume 90.7 fL (78.0-98.0); Platelet Count 101 thou/uL (130-400); RBC Distribution Width 20.9 % (11.5-14.5); Red Blood Cell (RBC) Count 2.59 mill/uL (4.70-6.10); White Blood Cell (WBC) Count 33.5 thou/uL (4.8-10.8)
[2021-03-09] MEDS: methylPREDNISolone Sod Succ 40 MG VIAL IVP SCH ×2 (09:20→21:13)
[2021-03-09 09:32] LABS: Albumin 3.1 g/dL (3.5-5.0); Anion Gap 19 mmol/L (10-20); BUN (Urea Nitrogen) 44 mg/dL (8.9-20.6); BUN/Creatinine Ratio 12.83; CK (CPK) 244 U/L (30-200); Calc. Creatinine Clearance 17 mL/min (70-130); Calcium 8.8 mg/dL (7.8-10.44); Carbon Dioxide 23 mmol/L (22-29); Chloride 98 mmol/L (98-107); Glucose 120 mg/dL (70-105); Phosphorus 7.1 mg/dL (2.3-4.7); Sodium 133 mmol/L (136-145)
[2021-03-09] MEDS: Pantoprazole 80 MG, Admixture Fee 1 EACH in Sodium Chloride 0.9% 100 ML IVP SCH ×2 (09:38→18:26)
[2021-03-09 09:41] LABS: Potassium 6.6 mmol/L (3.5-5.1)
[2021-03-09] MEDS: Norepinephrine 8 MG/0.9% NS 250 ML IVPB SCH ×3 (11:40→21:13)
[2021-03-09] MEDS: Folic Acid 1 MG TAB PO SCH (11:42)
[2021-03-09] MEDS: Magnesium Oxide 400 MG TAB PO SCH (11:42)
[2021-03-09] MEDS: Multivitamin W/ Minerals 1 TAB PO SCH (11:43)
[2021-03-09] MEDS: Rifaximin 550 MG TAB PO SCH ×2 (11:43→21:14)
[2021-03-09 12:26] LABS: HBSAg Index 0.24 S/CO (0-0.99); Hep B Surf Ag Non-Reactive S/CO (NonReactive)
[2021-03-09] MEDS: cefTRIAXone\\ROCEPHIN 1 GM in Sodium Chloride 0.9% 100 ML IVPB SCH ×3 (13:07→17:09)
[2021-03-09] MEDS: Octreotide Acetate 1,250 MCG in Sodium Chloride 0.9% 250 ML 250 ML IVPB SCH (13:24)
[2021-03-09] MEDS: Transdermal Patch Removal TOP SCH (21:14)
[2021-03-10] MEDS: Pantoprazole 80 MG, Admixture Fee 1 EACH in Sodium Chloride 0.9% 100 ML IVP SCH ×3 (04:29→20:56)
[2021-03-10] MEDS ORDERED: Fentanyl CADD 100 ML ONE (07:07)
[2021-03-10] MEDS: Fentanyl CADD 100 ML IV SCH (07:11)
[2021-03-10 08:16] LABS: Hemoglobin 6.9 g/dL (14.0-18.0); Mean Corpuscular HGB CONC 32.6 g/dL (32.0-36.0); Mean Corpuscular Hemoglobin 31.3 pg (27.0-31.0); Mean Platelet Volume 10.4 fL (7.4-10.4); Platelet Count 65 thou/uL (130-400); RBC Distribution Width 22.7 % (11.5-14.5); Red Blood Cell (RBC) Count 2.21 mill/uL (4.70-6.10); White Blood Cell (WBC) Count 31.1 thou/uL (4.8-10.8)
[2021-03-10] MEDS: Folic Acid 1 MG TAB PO SCH (08:17)
[2021-03-10] MEDS: Magnesium Oxide 400 MG TAB PO SCH (08:17)
[2021-03-10] MEDS: Rifaximin 550 MG TAB PO SCH ×2 (08:18→22:13)
[2021-03-10] MEDS: Multivitamin W/ Minerals 1 TAB PO SCH (08:18)
[2021-03-10 08:32] LABS: Albumin 2.6 g/dL (3.5-5.0); Alkaline Phosphatase 227 U/L (40-110); Anion Gap 28 mmol/L (10-20); BUN (Urea Nitrogen) 45 mg/dL (8.9-20.6); Calc. Creatinine Clearance 28 mL/min (70-130); Calcium 7.9 mg/dL (7.8-10.44); Carbon Dioxide 14 mmol/L (22-29); Chloride 100 mmol/L (98-107); Globulin 1.1 g/dL (2.4-3.5); Magnesium 2.3 mg/dL (1.6-2.6); Protein, Total 3.7 g/dL (6.0-8.3); Sodium 134 mmol/L (136-145)
[2021-03-10 08:34] LABS: AST (SGOT) Greater than 3500 U/L (5-34); Glucose 21 mg/dL (70-105); Potassium 7.9 mmol/L (3.5-5.1); Troponin I 0.492 ng/mL (< 0.028)
[2021-03-10] MEDS ORDERED: Dextrose 50% Abboject 50 ML SYRINGE ONE (08:36)
[2021-03-10 08:45] LABS: ALT (SGPT) 4262 U/L (8-55); Bilirubin, Total 28.9 mg/dL (0.2-1.2)
[2021-03-10] MEDS ORDERED: Heparin 10,000 UNITS/ 10 ML VIAL ONE (08:52)
[2021-03-10 09:13] LABS: Actual Bicarbonate (HCO3a) 13.8 mEq/L (22-28); Base Excess (BEa) -12.4 mEq/L (-2.0 to +3.0); CO2 Tension 32.3 mmHg (35.0-45.0); Carboxyhemoglobin (COHb) 2.6 gm% (0.0-3.0); Potassium - ABG Lab 7.36 mmol/L (3.70-5.30)
[2021-03-10 09:15] LABS: Hemoglobin (Hb) 5.4 g/dL (14.0-18.0); O2 Tension (PaO2), arterial 40.6 mmHg (80.0-100.0); Puncture Site RBA; pH, Arterial 7.25 (7.35-7.45)
[2021-03-10] MEDS ORDERED: Dextrose 10% in Water 1,000 ML IV SCH (09:15)
[2021-03-10] MEDS ORDERED: Sodium Bicarb 50 MEQ/50 ML Abboject 8.4% SYRINGE IVP SCH (09:15)
[2021-03-10] MEDS ORDERED: Dextrose 50% Abboject 50 ML SYRINGE SLOW IVP SCH (09:15)
[2021-03-10] MEDS ORDERED: Calcium Chloride 1 GM/10 ML Abboject SYRINGE IVP SCH (09:15)
[2021-03-10] MEDS ORDERED: Insulin Regular 300 UNITS/3 ML VIAL SC SCH (09:15)
[2021-03-10 09:16] LABS: ALV-art Gradient 168.575 mmHg (0-20)
[2021-03-10 09:22] LABS: Band 6 % (5-11); Lymphocytes 7 % (21-51); MDiff Complete? YES; Metamyelocyte 2 % (0-0); Monocytes 10 % (0-10); Neutrophil 75 % (42-75); Nucleated RBC 1 % (0); Platelet Morphology Comment Appears Decreased; Polychromasia MODERATE = 3-4 cells (100X) (0-2/hpf)
[2021-03-10 09:30] LABS: Prothrombin Time Greater than 150.0 sec (12.0-14.7)
[2021-03-10] MEDS ORDERED: Dextrose 50% Abboject 50 ML SYRINGE IVP PRN (09:30)
[2021-03-10] MEDS ORDERED: Dextrose 5% in Water 1,000 ML IV PRN (09:30)
[2021-03-10 09:35] LABS: PTT 108.2 sec (22.9-36.1)
[2021-03-10 09:37] LABS: Fibrinogen 41 mg/dL (253-463)
[2021-03-10] MEDS: Lidocaine 5% Patch TD SCH (10:54)
[2021-03-10] MEDS: methylPREDNISolone Sod Succ 40 MG VIAL IVP SCH ×2 (10:54→22:13)
[2021-03-10] MEDS: Norepinephrine 8 MG/0.9% NS 250 ML IVPB SCH ×4 (11:15→20:57)
[2021-03-10 12:16] LABS: Hemoglobin 7.4 g/dL (14.0-18.0)
[2021-03-10] MEDS ORDERED: Calcium Gluc 4.6 MEQ/10 ML (100 MG/ML) SLOW IVP SCH (14:45)
[2021-03-10 15:19] LABS: Anion Gap 28 mmol/L (10-20); BUN (Urea Nitrogen) 41 mg/dL (8.9-20.6); Calc. Creatinine Clearance 27 mL/min (70-130); Calcium 7.8 mg/dL (7.8-10.44); Carbon Dioxide 14 mmol/L (22-29); Chloride 99 mmol/L (98-107); Glucose 137 mg/dL (70-105); Sodium 133 mmol/L (136-145)
[2021-03-10 15:25] LABS: Potassium 7.7 mmol/L (3.5-5.1)
[2021-03-10] MEDS: cefTRIAXone\\ROCEPHIN 1 GM in Sodium Chloride 0.9% 100 ML IVPB SCH (17:14)
[2021-03-10] MEDS ORDERED: Albumin 25% 25 GM/100 ML BOT IVPB SCH (19:45)
[2021-03-10] MEDS: Transdermal Patch Removal TOP SCH (22:13)
[2021-03-10] MEDS ORDERED: Norepinephrine 8 MG/0.9% NS 250 ML IVPB SCH (22:30)
[2021-03-10 23:10] VITALS: BP 129/60
[2021-03-10] MEDS ORDERED: Norepinephrine 16 MG in Dextrose 5% in Water 234 ML IVPB PRN (23:15)
[2021-03-11 00:24] VITALS: TEMP 98.5
[2021-03-11] MEDS ORDERED: Norepinephrine 4 MG/4 ML VIAL ONE (01:41)
[2021-03-11] MEDS ORDERED: Norepinephrine 8 MG/0.9% NS 250 ML ONE (01:42)
[2021-03-11] MEDS ORDERED: EPINEPHrine 4 MG in Dextrose 5% in Water 250 ML IV SCH (02:00)
[2021-03-11 03:09] LABS: Hemoglobin 5.5 g/dL (14.0-18.0); Mean Corpuscular HGB CONC 32.4 g/dL (32.0-36.0); Mean Corpuscular Hemoglobin 31.6 pg (27.0-31.0); Mean Corpuscular Volume 97.5 fL (78.0-98.0); Mean Platelet Volume 10.9 fL (7.4-10.4); Platelet Count 33 thou/uL (130-400); RBC Distribution Width 23.2 % (11.5-14.5); Red Blood Cell (RBC) Count 1.75 mill/uL (4.70-6.10); White Blood Cell (WBC) Count 20.6 thou/uL (4.8-10.8)
[2021-03-11 03:12] LABS: ALT (SGPT) 2884 U/L (8-55); AST (SGOT) Greater than 3500 U/L (5-34); Albumin 2.5 g/dL (3.5-5.0); Alkaline Phosphatase 231 U/L (40-110); Anion Gap 32 mmol/L (10-20); BUN (Urea Nitrogen) 29 mg/dL (8.9-20.6); Calc. Creatinine Clearance 31 mL/min (70-130); Calcium 8.4 mg/dL (7.8-10.44); Carbon Dioxide 12 mmol/L (22-29); Chloride 98 mmol/L (98-107); Globulin 0.8 g/dL (2.4-3.5); Glucose 57 mg/dL (70-105); Magnesium 2.1 mg/dL (1.6-2.6); Phosphorus 9.8 mg/dL (2.3-4.7); Potassium 7.9 mmol/L (3.5-5.1); Protein, Total 3.3 g/dL (6.0-8.3); Sodium 134 mmol/L (136-145)
[2021-03-11 03:18] LABS: Bilirubin, Total 24.9 mg/dL (0.2-1.2)
[2021-03-11 04:00] LABS: Band 14 % (5-11); Lymphocytes 8 % (21-51); MDiff Complete? YES; Metamyelocyte 7 % (0-0); Monocytes 7 % (0-10); Myelocyte 12 % (0-0); Neutrophil 52 % (42-75); Nucleated RBC 15 % (0); Platelet Morphology Comment Appears Decreased; Polychromasia MODERATE = 3-4 cells (100X) (0-2/hpf)
[2021-03-11] MEDS ORDERED: Sodium Bicarbonate 150 MEQ in Dextrose 5% in Water 1,000 ML IV SCH (05:00)
== END 2021-03-11 02:37 | disposition expired | DRG 981 ==
LOC: ERS 19:06 → CCU 21:54 → IMCU/EMU 02-20 21:54 → T4-A 02-26 20:59 → CCU 03-08 11:42
PROVIDERS: ADMIT Student in an Organized Health Care Education/Training Program; ATTEND Internal Medicine
PROC: 06L38CZ Occlusion of Esophageal Vein with Extraluminal Device, Via Natural or Artificial Opening Endoscopic (ICD-10-PCS; 2021-02-17)
PROC: 5A1945Z Respiratory Ventilation, 24-96 Consecutive Hours (ICD-10-PCS; principal; 2021-02-18)
PROC: 30233K1 Transfusion of Nonautologous Frozen Plasma into Peripheral Vein, Percutaneous Approach (ICD-10-PCS; 2021-02-18)
PROC: 30233N1 Transfusion of Nonautologous Red Blood Cells into Peripheral Vein, Percutaneous Approach (ICD-10-PCS; 2021-02-18)
PROC: 0BH17EZ Insertion of Endotracheal Airway into Trachea, Via Natural or Artificial Opening (ICD-10-PCS; 2021-02-18)
PROC: 0D9670Z Drainage of Stomach with Drainage Device, Via Natural or Artificial Opening (ICD-10-PCS; 2021-02-18)
PROC: 0BCJ8ZZ Extirpation of Matter from Left Lower Lung Lobe, Via Natural or Artificial Opening Endoscopic (ICD-10-PCS; 2021-02-19)
PROC: 0W9G3ZX Drainage of Peritoneal Cavity, Percutaneous Approach, Diagnostic (ICD-10-PCS; 2021-02-28)
PROC: 0W9G3ZZ Drainage of Peritoneal Cavity, Percutaneous Approach (ICD-10-PCS; 2021-03-02)
PROC: 0W9G3ZZ Drainage of Peritoneal Cavity, Percutaneous Approach (ICD-10-PCS; 2021-03-06)
PROC: 3E043XZ Introduction of Vasopressor into Central Vein, Percutaneous Approach (ICD-10-PCS; 2021-03-08)
PROC: 5A12012 Performance of Cardiac Output, Single, Manual (ICD-10-PCS; 2021-03-08)
PROC: 5A1945Z Respiratory Ventilation, 24-96 Consecutive Hours (ICD-10-PCS; 2021-03-08)
PROC: 06L38CZ Occlusion of Esophageal Vein with Extraluminal Device, Via Natural or Artificial Opening Endoscopic (ICD-10-PCS; 2021-03-08)
PROC: 06HY33Z Insertion of Infusion Device into Lower Vein, Percutaneous Approach (ICD-10-PCS; 2021-03-08)
PROC: 0BH17EZ Insertion of Endotracheal Airway into Trachea, Via Natural or Artificial Opening (ICD-10-PCS; 2021-03-08)
PROC: 5A1D70Z Performance of Urinary Filtration, Intermittent, Less than 6 Hours Per Day (ICD-10-PCS; 2021-03-09)
DX: K70.31 Alcoholic cirrhosis of liver with ascites (principal); N17.0 Acute kidney failure with tubular necrosis; G93.41 Metabolic encephalopathy; J96.01 Acute respiratory failure with hypoxia; K72.00 Acute and subacute hepatic failure without coma; K76.7 Hepatorenal syndrome; I85.11 Secondary esophageal varices with bleeding; D62 Acute posthemorrhagic anemia; E87.1 Hypo-osmolality and hyponatremia; K76.6 Portal hypertension; D68.4 Acquired coagulation factor deficiency; E87.2 Acidosis; F10.231 Alcohol dependence with withdrawal delirium; J98.11 Atelectasis; Z20.822 Contact with and (suspected) exposure to COVID-19; R57.8 Other shock; I46.8 Cardiac arrest due to other underlying condition; E87.5 Hyperkalemia; E16.2 Hypoglycemia, unspecified; R00.1 Bradycardia, unspecified; E83.42 Hypomagnesemia; F41.9 Anxiety disorder, unspecified; K70.11 Alcoholic hepatitis with ascites; I10 Essential (primary) hypertension; D69.59 Other secondary thrombocytopenia; I08.1 Rheumatic disorders of both mitral and tricuspid valves; E80.6 Other disorders of bilirubin metabolism; K31.89 Other diseases of stomach and duodenum; E87.8 Other disorders of electrolyte and fluid balance, not elsewhere classified; E86.9 Volume depletion, unspecified; E83.51 Hypocalcemia; T50.1X5A Adverse effect of loop [high-ceiling] diuretics, initial encounter; R57.1 Hypovolemic shock; T50.0X5A Adverse effect of mineralocorticoids and their antagonists, initial encounter; Z87.891 Personal history of nicotine dependence; Z78.1 Physical restraint status; Z79.899 Other long term (current) drug therapy
CPT/HCPCS: 0240U; 31624; 36415; 36416; 36430; 36600; 49083; 71045; 74176; 76705; 80048; 80053; 80306; 81001; 82042; 82140; 82248; 82550; 82570; 82805; 83605; 83735; 83880; 84100; 84156; 84157; 84300; 84484; 85014; 85018; 85025; 85027; 85049; 85060; 85384; 85610; 85730; 86780; 86850; 86900; 86901; 87070; 87077; 87086; 87186; 87205; 87340; 89051; 90935; 93005; 93010; 93306; 94002; 94003; 94640; 96365; 96366; 96375; C9113; G0257; J0171; J0696; J1642; J1644; J1815; J1940; J2001; J2060; J2250; J2354; J2405; J2704; J2765; J2920; J3010; J3411; J3430; J3475; J3490; J7030; J7042; J7050; J7070; J7510; J7611; P9016; P9035; P9047; P9059; U0003; U0005